=== PATIENT | female | born 1945 | race Caucasian/White ===

== ENCOUNTER 2018-11-10 11:29 | Inpatient (IN) ==
[2018-11-10] MEDS ORDERED: Sod Chloride 0.9% Inj 1,000 ML IV.SIG ONE (11:59)
[2018-11-10 12:29] LABS: Baso % (Auto) 0.4 % (0.0-2.0); Eos % (Auto) 0.4 % (0.0-4.0); Hematocrit 40.7 % (35.0-46.0); Hemoglobin 14.2 gm/dL (11.6-15.3); Lymph % (Auto) 16.2 % (9.0-44.0); Mean Corpuscular HGB Conc 34.8 % (32.0-36.0); Mean Corpuscular Hemoglobin 31.3 pg (27.0-34.0); Mean Corpuscular Volume 90.1 fL (80.0-100.0); Mean Platelet Volume 7.4 fL (7.0-11.0); Mono # (Auto) 0.7 th/mm3 (0.0-0.9); Mono % (Auto) 12.5 % (0.0-8.0); Neut # (Auto) 4.1 th/mm3 (1.8-7.7); Neut % (Auto) 70.5 % (16.0-70.0); Platelet Count 508 th/mm3 (150-450); Red Blood Count 4.52 mil/mm3 (4.00-5.30); Red Cell Distribution Width 13.3 % (11.6-17.2); White Blood Count 5.9 th/mm3 (4.0-11.0)
[2018-11-10 12:48] LABS: Alanine Aminotransferase 50 U/L (10-53); Albumin 3.5 g/dL (3.4-5.0); Anion Gap 12 meq/L (5-15); Aspartate Aminotransferase 20 U/L (15-37); Blood Urea Nitrogen 43 mg/dL (7-18); Calcium 9.5 mg/dL (8.5-10.1); Carbon Dioxide 23.6 meq/L (21.0-32.0); Chloride 93 meq/L (98-107); Glomerular Filtration Rate 15 mL/min (>89); Glucose,Random 134 mg/dL (74-106); Sodium 129 meq/L (136-145)
[2018-11-10 12:51] LABS: Alkaline Phosphatase 250 U/L (45-117); Total Protein 8.7 g/dL (6.4-8.2)
[2018-11-10] MEDS ORDERED: Sodium Chlor 0.9% Inj 500 ML IV.SIG SCH (13:00)
[2018-11-10] MEDS ORDERED: MethylPREDNISolone Sod Succinate Inj 125 MG/2 ML Vial IV.PUSH ONE (14:13)
[2018-11-10] MEDS ORDERED: Acetaminophen 325 MG Tablet PO PRN (14:27)
[2018-11-10] MEDS ORDERED: Bisacodyl 10 MG Supp RECTAL PRN (14:27)
--- NOTE | 2018-11-10 14:27 | ED ---
HPI General Chief complaint: Abdominal Pain Stated complaint: GI/ Complaint Time Seen by Provider: 11/10/18 11:37 Source: patient Mode of arrival: ambulatory Limitations: no limitations History of Present Illness HPI narrative: Patient is a 73 year old female who comes in complaining of diarrhea. She says that she has ulcerative colitis and she has been having an exacerbation for the past 3 weeks. She reports several episodes of diarrhea per day and is now feeling very weak. She denies abdominal pain. She was here 2 weeks ago for the same thing. She was found to have hypokalemia. Her potassium was replaced, she was given fluids and discharged. She says she has been trying to keep up with her fluid loss. She has not been eating much. She denies vomiting. She denies fever or chills. Severity is moderate. Related Data Home Medications Medication Instructions Recorded Confirmed Lactobacillus rhamnosus GG 1 cap PO DAILY 10/28/18 11/10/18 albuterol sulfate [ProAir HFA] 2 puff INHALATION Q4-6H PRN 10/28/18 11/10/18 calcium carbonate-vitamin D3 1 tab PO DAILY 10/28/18 11/10/18 [Calcium with Vitamin D] cholecalciferol (vitamin D3) 5,000 unit PO DAILY 10/28/18 11/10/18 [Vitamin D3] codeine sulfate 30 mg PO TID PRN 10/28/18 11/10/18 diphenoxylate-atropine [Lomotil] 2 tab PO QID PRN 10/28/18 11/10/18 duloxetine 20 mg PO DAILY 10/28/18 11/10/18 fluticasone [Flovent HFA] 1 puff INHALATION BID PRN 10/28/18 11/10/18 hydrochlorothiazide 50 mg PO DAILY 10/28/18 11/10/18 magnesium chloride 64 mg PO DAILY 10/28/18 11/10/18 metoprolol succinate 100 mg PO DAILY 10/28/18 11/10/18 multivitamin [Multiple Vitamins] 1 tab PO DAILY 10/28/18 11/10/18 nortriptyline 10 mg PO HS 10/28/18 11/10/18 omega-3 fatty acids-fish oil [Fish 1 cap PO DAILY 10/28/18 11/10/18 Oil] opium tincture 0.7 ml PO QID PRN 10/28/18 11/10/18 pantoprazole [Protonix] 80 mg PO DAILY 10/28/18 11/10/18 Previous Rx's Medication Instructions Recorded potassium chloride 20 meq PO BID #10 tab 10/28/18 Allergies Allergy/AdvReac Type Severity Reaction Status Date / Time amitriptyline Allergy Weakness Verified 10/28/18 10:57 erythromycin base Allergy Shortness Verified 10/28/18 10:57 of Breath ibuprofen Allergy Abdominal Verified 10/28/18 10:57 Pain infliximab [From Remicade] Allergy Hives Verified 10/28/18 10:57 Penicillins Allergy Shortness Verified 10/28/18 10:57 of Breath Sulfa (Sulfonamide Allergy Shortness Verified 10/28/18 10:57 Antibiotics) of Breath Review of Systems ROS: all other systems reviewed are negative Constitutional Denies chills and Denies fever(s) ENT Denies dizziness Cardiovascular Denies chest pain and Denies dyspnea Respiratory Denies cough and Denies dyspnea Gastrointestinal Denies abdominal pain and Reports diarrhea Musculoskeletal Denies myalgias and Denies arthralgias Integumentary/Breasts Denies sores and Denies wounds Neurologic Denies numbness and Reports weakness PMFSH Medical History Medical History Depression (Acute) GERD (gastroesophageal reflux disease) (Acute) History of hysterectomy (Acute) Hypertension (Acute) Ulcerative colitis (Acute) Surgical History Surgical History H/O neck surgery (Acute) History of cholecystectomy (Acute) Social History Social History Substance History: No History of Abuse Smoking Status: Never smoker How Often Do You Have a Drink Containing Alcohol: Never Recent Travel in [place] within the Last 8 Weeks: No Recent Out of Country Travel within the Last 8 Weeks: No Immunization History Tetanus Immunization: Unsure Exam Narrative Exam Narrative: GENERAL: Awake and alert, in no acute distress. SKIN: Focused skin assessment warm/dry. No wounds or signs of infection. HEAD: Atraumatic. Normocephalic. EYES: Pupils equal and round. No scleral icterus. No injection or drainage. ENT: No nasal bleeding or discharge. Mucous membranes pink and moist. NECK: Trachea midline. No JVD. CARDIOVASCULAR: Regular rate and rhythm. No murmur appreciated. RESPIRATORY: No accessory muscle use. Clear to auscultation. Breath sounds equal bilaterally. GASTROINTESTINAL: Abdomen soft, non-tender, nondistended. MUSCULOSKELETAL: No obvious deformities. No clubbing. No cyanosis. No edema. NEUROLOGICAL: Awake and alert. No obvious cranial nerve deficits. Motor grossly within normal limits. Normal speech. PSYCHIATRIC: Appropriate mood and affect; insight and judgment normal. Course Initial Documented Vital Signs Temperature 98.4 F 11/10/18 11:31 Pulse Rate 97 H 11/10/18 11:31 Respiratory Rate 18 11/10/18 11:31 Blood Pressure 131/77 11/10/18 11:31 Pulse Oximetry 98 11/10/18 11:31 Last Documented Vital Signs Temperature 98.4 F 11/10/18 11:31 Pulse Rate 82 11/10/18 13:46 Respiratory Rate 14 11/10/18 13:46 Blood Pressure 126/68 11/10/18 13:46 Pulse Oximetry 98 11/10/18 13:46 Medical Decision Making MDM Narrative Medical decision making narrative: Patient is a 73-year-old female who comes in complaining of diarrhea. Exam shows no abdominal tenderness. IV established, labs sent. Labs concerning for a Cr of 3, up from 1.9 2 weeks ago, sodium of 129, potassium of 3.0. Patient given IVF. Given potassium. Patient given a dose of solumedrol in an attempt to help with UC flare. Patient to be admitted for further management. Medical Screen Exam Complete: Yes Emergency Medical Condition: Yes Differential Diagnosis Differential Diagnosis: Dehydration versus electrolyte abnormality versus ulcerative colitis Medical Records Medical records reviewed: Yes I reviewed the patient's medical records. Lab Data Lab results reviewed: Yes I reviewed the patient's lab results. Result diagrams: 11/10/18 11:55 11/10/18 11:55 Lab Results 11/10/18 11/10/18 Range/Units 11:55 11:55 WBC 5.9 (4.0-11.0) th/mm3 RBC 4.52 (4.00-5.30) mil/mm3 Hgb 14.2 (11.6-15.3) gm/dL Hct 40.7 (35.0-46.0) % MCV 90.1 (80.0-100.0) fL MCH 31.3 (27.0-34.0) pg MCHC 34.8 (32.0-36.0) % RDW 13.3 (11.6-17.2) % Plt Count 508 H D (150-450) th/mm3 MPV 7.4 (7.0-11.0) fL Neut % (Auto) 70.5 H (16.0-70.0) % Lymph % (Auto) 16.2 (9.0-44.0) % [place] % (Auto) 12.5 H (0.0-8.0) % Eos % (Auto) 0.4 (0.0-4.0) % Baso % (Auto) 0.4 (0.0-2.0) % Neut # (Auto) 4.1 (1.8-7.7) th/mm3 Lymph # (Auto) 1.0 (1.0-4.8) th/mm3 [place] # (Auto) 0.7 (0.0-0.9) th/mm3 Eos # (Auto) 0.0 (0.0-0.4) th/mm3 Baso # (Auto) 0.0 (0.0-0.2) th/mm3 WBC Differential . Differential Comment Auto diff final Sodium 129 L (136-145) meq/L Potassium 3.0 L (3.5-5.1) meq/L Chloride 93 L (98-107) meq/L Carbon Dioxide 23.6 (21.0-32.0) meq/L Anion Gap 12 (5-15) meq/L BUN 43 H (7-18) mg/dL Creatinine 3.01 H (0.50-1.00) mg/dL Estimated GFR 15 L (>89) mL/min Random Glucose 134 H (74-106) mg/dL Calcium 9.5 (8.5-10.1) mg/dL Magnesium 2.0 (1.5-2.5) mg/dL Total Bilirubin 0.5 (0.2-1.0) mg/dL AST 20 (15-37) U/L ALT 50 (10-53) U/L Alkaline Phosphatase 250 H (45-117) U/L Total Protein 8.7 H (6.4-8.2) g/dL Albumin 3.5 (3.4-5.0) g/dL Discharge Plan Discharge Disposition Patient Disposition: ED Admit(ED Internal Use Only) Discharge Condition Condition: Stable Discharge Order Discharge Orders: ED Use Only Admit Order (Routine); Ordered 11/10/18 Ordered By: Rosa Frank Discharge Details Diagnosis: Dehydration, GIO (acute kidney injury), Acute hypokalemia, Acute hyponatremia Physicians Team ED Provider: Rosa Frank Primary Care Provider: Primary Care Dora Latham Attending Provider: Arlette Godwin Other Providers: Geovany Cano V Status ED Status: Left Department Discharge Information Discharge Date/Time: 11/10/18 15:39
[2018-11-10] MEDS ORDERED: Diphenoxylate/Atropine 2.5/0.025 MG Tablet PO PRN (15:27)
[2018-11-10] MEDS ORDERED: OPIUM TINCTURE PO (17:00)
--- NOTE | 2018-11-10 17:04 | P.HP ---
History of Present Illness Primary Care Physician: No Primary Care Physician Chief Complaint: intractable diarrhea, nausea, inability to eat History of Present Illness: 73-year-old female with PMH of depression, GERD, hysterectomy, hypertension, ulcerative colitis( for 20 years) and rheumatoid arthritis who presented to [facility] with complaints of intractable diarrhea, nausea, inability to eat. Patient reports she has a history of ulcerative colitis treated with multiple medications and failed, also follows at [facility] and was told she will need eventually a colectomy. States she has been having "exacerbations" for the past 3 weeks. Reports multiple episodes of diarrhea (~ 20), nonbloody and associated nausea with decreased PO intake and generalized weakness. She reports that she has been on multiple medications that have not been effective. States she uses Pepto-Bismol [id number] and it is not effective as well. Last colonoscopy done 2016 revealed ulcerative colitis, microscopic colitis. Last EGD done in 2011 revealed a esophagitis. Patient denies any current medications taken for ulcerative colitis or rheumatoid arthritis. Patient states that she gets steroid shots as needed for rheumatoid arthritis discomfort. The patient is noted with severe electrolyte imbalance, GIO due to intractable diarrhea, decreased PO intake. She received solumedrol in the ED and also was bolused. Gastroenterology consulted, discussed with Dr Cano, plans for colonoscopy on Tuesday Patient otherwise denies any abdominal pain. No fever or chills. No chest pain or sob she is attign well on room air. Patient denies urinary complaints except she has noticed less urination. Inpatient Certification: I certify that the inpatient services were ordered in accordance with Medicare regulations governing the order. This includes certification that hospital inpatient services are reasonable and necessary and in the case of services not specified as inpatient-only under 42 CFR 419.22(n), that they are appropriately provided as inpatient services in accordance to with the 2-midnight benchmark under 43 CFR 412.3(e) Estimated Total Length of Stay (Days): 5 Plans for Post Hospital Care: Home Review of Systems All other systems reviewed negative except as stated in HPI PMFSH - History History Provided By: Patient - Medical History Medical History: Medical History (Last Reviewed 11/10/18 @ 17:03 by Arlette Godwin MD) Depression GERD (gastroesophageal reflux disease) History of hysterectomy Hypertension Ulcerative colitis - Surgical History Surgical History: Surgical History (Last Reviewed 11/10/18 @ 17:03 by Arlette Godwin MD) H/O neck surgery History of cholecystectomy - Family History Family History: Family History (Last Updated 11/10/18 @ 17:04 by Arlette Godwin MD) Mother Kidney failure - Social History I have reviewed the patient's Social History: Yes - Tobacco History Smoking Status: Never smoker - Alcohol History How Often Do You Have a Drink Containing Alcohol: Never - Substance Use History Substance History: No History of Abuse - Travel History Recent Travel in the [place] Within the Last 8 Weeks: No Recent Travel Out of the Country Within the Last 8 Weeks: No - Immunization History Tetanus Immunization: Unsure Medications and Allergies Active Medications: Active Medications Acetaminophen (Tylenol) 650 mg PO Q4H PRN PRN Reason: Temp > 100.4 Codeine Sulfate (Codeine Sulfate) 30 mg PO TID PRN PRN Reason: Diarrhea Diphenoxylate HCl/Atropine (Lomotil) 2 tab PO QID PRN PRN Reason: Diarrhea Duloxetine HCl (Cymbalta) 20 mg PO DAILY [facility] Fluticasone Propionate (Flovent Hfa 110 Mcg Inh) 1 puff INH BID PRN PRN Reason: Shortness Of Breath Sodium Chloride (Ns Inj) 1,000 mls @ 100 mls/hr IV.CONT .Q10H ANNIE Lactobacillus Acidophilus (Lactinex) 1 tab PO DAILY ANNIE Metoprolol Succinate (Toprol Xl) 100 mg PO DAILY ANNIE Nortriptyline HCl (Pamelor) 10 mg PO HS ANNIE Ondansetron HCl (Zofran Inj) 4 mg IV.PUSH Q6H PRN PRN Reason: NAUSEA OR VOMITING Pantoprazole Sodium (Protonix) 80 mg PO DAILY ANNIE Patient Own Medication - Opium Tincture 0.7 Ml Po Qid Prn For Diarrhea 0 each PO QID PRN PRN Reason: Diarrhea Sodium Chloride (Ns Flush) 2 ml IV.FLUSH BID ANNIE Sodium Chloride (Ns Flush) 2 ml IV.FLUSH PRN PRN PRN Reason: FLUSH AFTER USING IV ACCESS Allergies Allergy/AdvReac Type Severity Reaction Status Date / Time amitriptyline Allergy Weakness Verified 10/28/18 10:57 erythromycin base Allergy Shortness Verified 10/28/18 10:57 of Breath ibuprofen Allergy Abdominal Verified 10/28/18 10:57 Pain infliximab [From Remicade] Allergy Hives Verified 10/28/18 10:57 Penicillins Allergy Shortness Verified 10/28/18 10:57 of Breath Sulfa (Sulfonamide Allergy Shortness Verified 10/28/18 10:57 Antibiotics) of Breath Home Medications Medication Instructions Recorded Confirmed Type Lactobacillus rhamnosus GG 1 cap PO DAILY 10/28/18 11/10/18 History albuterol sulfate [ProAir HFA] 2 puff INHALATION Q4-6H PRN 10/28/18 11/10/18 History calcium carbonate-vitamin D3 1 tab PO DAILY 10/28/18 11/10/18 History [Calcium with Vitamin D] cholecalciferol (vitamin D3) 5,000 unit PO DAILY 10/28/18 11/10/18 History [Vitamin D3] codeine sulfate 30 mg PO TID PRN 10/28/18 11/10/18 History diphenoxylate-atropine [Lomotil] 2 tab PO QID 10/28/18 11/10/18 History duloxetine 20 mg PO DAILY 10/28/18 11/10/18 History fluticasone [Flovent HFA] 1 puff INHALATION BID PRN 10/28/18 11/10/18 History hydrochlorothiazide 50 mg PO DAILY 10/28/18 11/10/18 History magnesium chloride 64 mg PO DAILY 10/28/18 11/10/18 History metoprolol succinate 100 mg PO DAILY 10/28/18 11/10/18 History multivitamin [Multiple Vitamins] 1 tab PO DAILY 10/28/18 11/10/18 History nortriptyline 10 mg PO HS 10/28/18 11/10/18 History omega-3 fatty acids-fish oil [Fish 1 cap PO DAILY 10/28/18 11/10/18 History Oil] opium tincture 0.7 ml PO QID PRN 10/28/18 11/10/18 History pantoprazole [Protonix] 80 mg PO DAILY 10/28/18 11/10/18 History Exam Vital signs: Vital Signs 11/10/18 11:31 11/10/18 13:46 Temperature 98.4 F Pulse Rate 97 H 82 Respiratory Rate 18 14 Blood Pressure 131/77 126/68 Pulse Oximetry 98 98 Intake & Output 11/09/18 11/10/18 11/10/18 18:59 06:59 18:59 Intake Total 1500 / 1500 Balance 1500 / 1500 Weight 77.111 kg Intake: IV 1500 / 1500 NS Inj 1,000 ML @ Wide Open IV. 1000 / 1000 SIG BOLUS ONE Rx#:[id number] NS Inj 500 ML @ 1000 mls/hr IV. 500 / 500 SIG BOLUS ANNIE Rx#:[id number] Narrative: GENERAL: Very pleasant 73 yo female, well nourished, well developed, appears in nad. SKIN: Warm and dry. HEAD: Atraumatic. Normocephalic. EYES: Pupils equal and round. No scleral icterus. No injection or drainage. ENT: No nasal bleeding or discharge. Mucous membranes pink and moist. NECK: Trachea midline. No JVD. CARDIOVASCULAR: Regular rate and rhythm. RESPIRATORY: No accessory muscle use. Clear to auscultation. Breath sounds equal bilaterally. GASTROINTESTINAL: Abdomen soft, non-tender, nondistended. Hepatic and splenic margins not palpable. MUSCULOSKELETAL: Extremities without clubbing, cyanosis, or edema. No obvious deformities. NEUROLOGICAL: Awake and alert. No obvious cranial nerve deficits. Motor grossly within normal limits. Five out of 5 muscle strength in the arms and legs. Normal speech. PSYCHIATRIC: Appropriate mood and affect; insight and judgment normal. Results - Labs CBC & Chem 7: 11/10/18 11:55 11/10/18 11:55 Labs: Laboratory Results - last 24 hr 11/10/18 11/10/18 11:55 11:55 WBC 5.9 RBC 4.52 Hgb 14.2 Hct 40.7 MCV 90.1 MCH 31.3 MCHC 34.8 RDW 13.3 Plt Count 508 H D MPV 7.4 Neut % (Auto) 70.5 H Lymph % (Auto) 16.2 [place] % (Auto) 12.5 H Eos % (Auto) 0.4 Baso % (Auto) 0.4 Neut # (Auto) 4.1 Lymph # (Auto) 1.0 [place] # (Auto) 0.7 Eos # (Auto) 0.0 Baso # (Auto) 0.0 WBC Differential . Differential Comment Auto diff final Sodium 129 L Potassium 3.0 L Chloride 93 L Carbon Dioxide 23.6 Anion Gap 12 BUN 43 H Creatinine 3.01 H Estimated GFR 15 L Random Glucose 134 H Calcium 9.5 Magnesium 2.0 Total Bilirubin 0.5 AST 20 ALT 50 Alkaline Phosphatase 250 H Total Protein 8.7 H Albumin 3.5 Caprini VTE Risk Assessment Caprini VTE Risk Assessment: No/Low Risk (score <= 1) Caprini Risk Assessment Model: Point Value = 1 Point Value = 2 Point Value = 3 Point Value = 5 Age 41-60 Minor surgery BMI > 25 kg/m2 Swollen legs Varicose veins or History of unexplained or recurrent spontaneous Oral contraceptives or hormone replacement Sepsis (< 1 month) Serious lung disease, including pneumonia (< 1 month) Abnormal pulmonary function Acute myocardial infarction Congestive heart failure (< 1 month) History of inflammatory bowel disease Medical patient at bed rest Age 61-74 Arthroscopic surgery Major open surgery (> 45 min) Laparoscopic surgery (> 45 min) Malignancy Confined to bed (> 72 hours) Immobilizing plaster cast Central venous access Age >= 75 History of VTE Family history of VTE Factor V Leiden Prothrombin [id number] Lupus anticoagulant Anticardiolipin antibodies Elevated serum homocysteine Heparin-induced thrombocytopenia Other congenital or acquired thrombophilia Stroke (< 1 month) Elective arthroplasty Hip, pelvis, or leg fracture Acute spinal cord injury (< 1 month) Prophylaxis Regimen: Total Risk Factor Score Risk Level Prophylaxis Regimen 0-1 Low Early ambulation 2 Moderate Order ONE of the following: *Sequential Compression Device (SCD) *Heparin 5000 units SQ BID 3-4 Higher Order ONE of the following medications: *Heparin 5000 units SQ TID *Enoxaparin/Lovenox 40 mg SQ daily (WT < 150 kg, CrCl > 30 mL/min) *Enoxaparin/Lovenox 30 mg SQ daily (WT < 150 kg, CrCl > 10-29 mL/min) *Enoxaparin/Lovenox 30 mg SQ BID (WT < 150 kg, CrCl > 30 mL/min) AND/OR *Sequential Compression Device (SCD) 5 or more Highest Order ONE of the following medications: *Heparin 5000 units SQ TID (Preferred with Epidurals) *Enoxaparin/Lovenox 40 mg SQ daily (WT < 150 kg, CrCl > 30 mL/min) *Enoxaparin/Lovenox 30 mg SQ daily (WT < 150 kg, CrCl > 10-29 mL/min) *Enoxaparin/Lovenox 30 mg SQ BID (WT < 150 kg, CrCl > 30 mL/min) AND *Sequential Compression Device (SCD) Assessment and Plan - Plan Colitis Lymphocytic versus microscopic Patient presents with 2-3-week history of loose stools. Patient denies any noted bleeding denies abdominal pain. History of lymphocytic/microscopic colitis WBC 5.9 hemoglobin 14.2 hematocrit 40.7 probable GIO with BUN 43 creatinine 3.01 on admission total bilirubin 0.5 AST 20 ALT 50 alk phos 250 Hypokalemia Hyponatremia GERD Depression Diet as tolerated IBD panel Plan for colonoscopy on Tuesday Questran 1 packet every 6 hours Restart home meds as tolerated C. difficile stool Stool studies CT abdomen and pelvis without contrast Zofran IV prn IVF 0.9 NS Replace potassium Monitor and replace electrolytes as need DVT ppx scd /teds Recoeds reviewed Code Status: full code Discussed Condition With: patient, at bedside, nurse, ED physician, GI team Dr Cano
[2018-11-10] MEDS: Sod Chloride 0.9% Inj 1,000 ML IV.CONT SCH (18:02)
--- NOTE | 2018-11-10 18:29 | P.CONGI ---
History of Present Illness Consult date: 11/10/18 Consult reason: Diarrhea Chief complaint: Acute kidney injury, hypocalemia, hyponatremia, History of Present Illness: Patient is a 73-year-old female who presented to [facility] with complaints of diarrhea. Patient reports she has history of ulcerative colitis. States she has been having "exacerbation" for the past 3 weeks. Reports multiple episodes of diarrhea and generalized weakness. Patient reports past medical history significant for depression, GERD, hysterectomy, hypertension, ulcerative colitis and rheumatoid arthritis. Surgical history significant for neck surgery, cholecystectomy. Upon consultation, patient reports diagnosis of ulcerative colitis for 20 years. She reports that she has been on multiple medications that have not been effective. States she uses Pepto-Bismol [id number] and it is not effective as well. Last colonoscopy done 2017 revealed ulcerative colitis, microscopic colitis. Last EGD done in 2011 revealed a esophagitis. Patient denies any current medications taken for ulcerative colitis or rheumatoid arthritis. Patient states that she gets steroid shots as needed for rheumatoid arthritis discomfort. Our service has been consulted to evaluate patient for reported diarrhea, history of ulcerative colitis. Review of Systems All other systems reviewed negative except as stated in HPI PMFSH - History History Provided By: Patient - Medical History Medical History: Medical History (Last Reviewed 11/10/18 @ 17:54 by Alexsandra Elias RN) GERD (gastroesophageal reflux disease) History of hysterectomy Hypertension Ulcerative colitis - Surgical History Surgical History: Surgical History (Last Reviewed 11/10/18 @ 17:54 by Alexsandra Elias RN) H/O neck surgery History of cholecystectomy - Family History Family History: Family History (Last Updated 11/10/18 @ 17:04 by Arlette Godwin MD) Mother Kidney failure - Tobacco History Second Hand Smoke Exposure: No Smoking Status: Never smoker - Alcohol History How Often Do You Have a Drink Containing Alcohol: 2 to 4 times a month - Substance Use History Substance History: No History of Abuse - Travel History Recent Travel in the [place] Within the Last 8 Weeks: No Recent Travel Out of the Country Within the Last 8 Weeks: No - Immunization History Tetanus Immunization: <5 Years Hx Influenza Vaccine This Season: Yes Medications and Allergies Active Medications: Active Medications Acetaminophen (Tylenol) 650 mg PO Q4H PRN PRN Reason: Temp > 100.4 Codeine Sulfate (Codeine Sulfate) 30 mg PO TID PRN PRN Reason: Diarrhea Diphenoxylate HCl/Atropine (Lomotil) 2 tab PO QID PRN PRN Reason: Diarrhea Duloxetine HCl (Cymbalta) 20 mg PO DAILY [facility] Fluticasone Propionate (Flovent Hfa 110 Mcg Inh) 1 puff INH BID PRN PRN Reason: Shortness Of Breath Sodium Chloride (Ns Inj) 1,000 mls @ 100 mls/hr IV.CONT .Q10H [facility] Last Admin: 11/10/18 18:02 Dose: 100 mls/hr Lactobacillus Acidophilus (Lactinex) 1 tab PO DAILY [facility] Metoprolol Succinate (Toprol Xl) 100 mg PO DAILY [facility] Nortriptyline HCl (Pamelor) 10 mg PO HS [facility] Ondansetron HCl (Zofran Inj) 4 mg IV.PUSH Q6H PRN PRN Reason: NAUSEA OR VOMITING Pantoprazole Sodium (Protonix) 80 mg PO DAILY [facility] Patient Own Medication - Opium Tincture 0.7 Ml Po Qid Prn For Diarrhea 0 each PO QID PRN PRN Reason: Diarrhea Sodium Chloride (Ns Flush) 2 ml IV.FLUSH BID [facility] Sodium Chloride (Ns Flush) 2 ml IV.FLUSH PRN PRN PRN Reason: FLUSH AFTER USING IV ACCESS Allergies Allergy/AdvReac Type Severity Reaction Status Date / Time amitriptyline Allergy Weakness Verified 10/28/18 10:57 erythromycin base Allergy Shortness Verified 10/28/18 10:57 of Breath ibuprofen Allergy Abdominal Verified 10/28/18 10:57 Pain infliximab [From Remicade] Allergy Hives Verified 10/28/18 10:57 Penicillins Allergy Shortness Verified 10/28/18 10:57 of Breath Sulfa (Sulfonamide Allergy Shortness Verified 10/28/18 10:57 Antibiotics) of Breath Home Medications Medication Instructions Recorded Confirmed Type Lactobacillus rhamnosus GG 1 cap PO DAILY 10/28/18 11/10/18 History albuterol sulfate [ProAir HFA] 2 puff INHALATION Q4-6H PRN 10/28/18 11/10/18 History calcium carbonate-vitamin D3 1 tab PO DAILY 10/28/18 11/10/18 History [Calcium with Vitamin D] cholecalciferol (vitamin D3) 5,000 unit PO DAILY 10/28/18 11/10/18 History [Vitamin D3] codeine sulfate 30 mg PO TID PRN 10/28/18 11/10/18 History diphenoxylate-atropine [Lomotil] 2 tab PO QID 10/28/18 11/10/18 History duloxetine 20 mg PO DAILY 10/28/18 11/10/18 History fluticasone [Flovent HFA] 1 puff INHALATION BID PRN 10/28/18 11/10/18 History hydrochlorothiazide 50 mg PO DAILY 10/28/18 11/10/18 History magnesium chloride 64 mg PO DAILY 10/28/18 11/10/18 History metoprolol succinate 100 mg PO DAILY 10/28/18 11/10/18 History multivitamin [Multiple Vitamins] 1 tab PO DAILY 10/28/18 11/10/18 History nortriptyline 10 mg PO HS 10/28/18 11/10/18 History omega-3 fatty acids-fish oil [Fish 1 cap PO DAILY 10/28/18 11/10/18 History Oil] opium tincture 0.7 ml PO QID PRN 10/28/18 11/10/18 History pantoprazole [Protonix] 80 mg PO DAILY 10/28/18 11/10/18 History Exam Vital signs: Vital Signs 11/10/18 11:31 11/10/18 13:46 Temperature 98.4 F Pulse Rate 97 H 82 Respiratory Rate 18 14 Blood Pressure 131/77 126/68 Pulse Oximetry 98 98 Intake & Output 11/09/18 11/10/18 11/10/18 18:59 06:59 18:59 Intake Total 1500 / 1500 Balance 1500 / 1500 Weight 77.1 kg Intake: IV 1500 / 1500 NS Inj 1,000 ML @ Wide Open IV. 1000 / 1000 SIG BOLUS ONE Rx#:[id number] NS Inj 500 ML @ 1000 mls/hr IV. 500 / 500 SIG BOLUS ANNIE Rx#:[id number] Other: Date of Last Bowel Movement 11/10/18 # Bowel Movements 3 Weight On Admission 77.1 kg - Constitutional no acute distress - Routine HEENT Exam Head: Present: normocephalic - Routine Neck Exam Present: supple - Routine Respiratory Exam Present: CTA bilaterally. Absent: accessory muscle use - Routine Abdominal Exam Present: soft, normoactive bowel sounds. Absent: tenderness, distended, guarding, firm - Routine Extremities Exam Absent: edema - Routine Skin Exam Present: dry, warm - Routine Neurological Exam Present: alert Results - Labs CBC & Chem 7: 11/10/18 11:55 11/10/18 11:55 Labs: Laboratory Results - last 24 hr 11/10/18 11/10/18 11:55 11:55 WBC 5.9 RBC 4.52 Hgb 14.2 Hct 40.7 MCV 90.1 MCH 31.3 MCHC 34.8 RDW 13.3 Plt Count 508 H D MPV 7.4 Neut % (Auto) 70.5 H Lymph % (Auto) 16.2 [place] % (Auto) 12.5 H Eos % (Auto) 0.4 Baso % (Auto) 0.4 Neut # (Auto) 4.1 Lymph # (Auto) 1.0 [place] # (Auto) 0.7 Eos # (Auto) 0.0 Baso # (Auto) 0.0 WBC Differential . Differential Comment Auto diff final Sodium 129 L Potassium 3.0 L Chloride 93 L Carbon Dioxide 23.6 Anion Gap 12 BUN 43 H Creatinine 3.01 H Estimated GFR 15 L Random Glucose 134 H Calcium 9.5 Magnesium 2.0 Total Bilirubin 0.5 AST 20 ALT 50 Alkaline Phosphatase 250 H Total Protein 8.7 H Albumin 3.5 Assessment and Plan (1) Colitis Status: Acute Code(s): K52.9 - Noninfective gastroenteritis and colitis, unspecified - Plan Patient is a 73-year-old female who presented to [facility] with complaints of diarrhea. Patient reports she has history of ulcerative colitis. States she has been having "exacerbation" for the past 3 weeks. Reports multiple episodes of diarrhea and generalized weakness. Patient reports past medical history significant for depression, GERD, hysterectomy, hypertension, ulcerative colitis and rheumatoid arthritis. Surgical history significant for neck surgery, cholecystectomy. Upon consultation, patient reports diagnosis of ulcerative colitis for 20 years. She reports that she has been on multiple medications that have not been effective. States she uses Pepto-Bismol [id number] and it is not effective as well. Last colonoscopy done 2017 revealed ulcerative colitis, microscopic colitis. Last EGD done in 2011 revealed a esophagitis. Patient denies any current medications taken for ulcerative colitis or rheumatoid arthritis. Patient states that she gets steroid shots as needed for rheumatoid arthritis discomfort. Our service has been consulted to evaluate patient for reported diarrhea, history of ulcerative colitis. Colitis Lymphocytic versus microscopic Patient presents with 2-3-week history of loose stools. Patient denies any noted bleeding denies abdominal pain. History of lymphocytic/microscopic colitis WBC 5.9 hemoglobin 14.2 hematocrit 40.7 BUN 43 creatinine 3.01 total bilirubin 0.5 AST 20 ALT 50 alk phos 250 Plan Diet as tolerated IBD panel Plan for colonoscopy on Tuesday Questran 1 packet every 6 hours C. difficile stool Stool studies CT abdomen and pelvis without contrast Supportive care Further recommendations to follow This patient has been seen by myself and Dr. Cano and this note is written on his behalf - Attending Attestation Dr. Cano
--- NOTE | 2018-11-10 19:15 | CT ---
EXAM DATE: 11/10/2018 7:09 PM EST AGE/SEX: 73 years / Female INDICATIONS: Low abdominal pain and diarrhea. CLINICAL DATA: This is the patient's initial encounter. Patient reports that signs and symptoms have been present for 2 days and indicates a pain score of 3/10. MEDICAL/SURGICAL HISTORY: Gastroesophageal reflux disease. Hypertension. Ulcerative colitis. Hysterectomy. Cholecystectomy. Neck surgery RADIATION DOSE: 7.44 CTDI (mGy) COMPARISON: No prior exams available for comparison. TECHNIQUE: Multiple contiguous axial images were obtained through the abdomen. Images were obtained using multiple row detector helical technique. Using automated exposure control and adjustment of the mA and/or kV according to patient size, radiation dose was kept as low as reasonably achievable to o btain optimal diagnostic quality images. DICOM format image data is available electronically for rev iew and comparison. FINDINGS: Abdomen CT: The liver, spleen, pancreas, kidneys, adrenals are unremarkable. There is no evidence for any appreci able pathological adenopathy, free fluid, or bowel obstruction. Multiple pills are present within th e small bowel loops. Pelvic CT: There is no evidence for mass, abscess formation, or any significant adenopathy within the pelvis. CONCLUSION: Essentially unremarkable study. Electronically signed by: Stacy Soliz MD Board Certified Radiologist 11/10/2018 7:14 PM EST
[2018-11-10] MEDS ORDERED: Senna/Docusate Sodium 8.6/50 MG Tablet PO SCH (21:00)
[2018-11-10] MEDS: Nortriptyline 10 MG Capsule PO SCH (21:54)
[2018-11-11] MEDS: Sod Chloride 0.9% Inj 1,000 ML IV.CONT SCH ×3 (03:23→22:47)
[2018-11-11] MEDS ORDERED: Acetaminophen 325 MG Tablet PO PRN (06:03)
[2018-11-11 07:18] LABS: Baso % (Auto) 0.2 % (0.0-2.0); Hematocrit 35.5 % (35.0-46.0); Hemoglobin 12.2 gm/dL (11.6-15.3); Lymph # (Auto) 0.6 th/mm3 (1.0-4.8); Lymph % (Auto) 11.5 % (9.0-44.0); Mean Corpuscular HGB Conc 34.4 % (32.0-36.0); Mean Corpuscular Volume 90.2 fL (80.0-100.0); Mean Platelet Volume 7.5 fL (7.0-11.0); Mono # (Auto) 0.2 th/mm3 (0.0-0.9); Mono % (Auto) 3.5 % (0.0-8.0); Neut # (Auto) 4.4 th/mm3 (1.8-7.7); Neut % (Auto) 84.8 % (16.0-70.0); Platelet Count 416 th/mm3 (150-450); Red Blood Count 3.94 mil/mm3 (4.00-5.30); Red Cell Distribution Width 13.1 % (11.6-17.2); White Blood Count 5.2 th/mm3 (4.0-11.0)
[2018-11-11 07:39] LABS: Alanine Aminotransferase 36 U/L (10-53); Albumin 2.9 g/dL (3.4-5.0); Alkaline Phosphatase 182 U/L (45-117); Anion Gap 11 meq/L (5-15); Aspartate Aminotransferase 12 U/L (15-37); Blood Urea Nitrogen 37 mg/dL (7-18); Calcium 8.3 mg/dL (8.5-10.1); Carbon Dioxide 22.5 meq/L (21.0-32.0); Chloride 103 meq/L (98-107); Glomerular Filtration Rate 26 mL/min (>89); Glucose,Random 137 mg/dL (74-106); Potassium 3.1 meq/L (3.5-5.1); Sodium 136 meq/L (136-145)
[2018-11-11] MEDS ORDERED: Lactobacillus Acidophilus/L. Spores Tablet PO SCH (09:00)
--- NOTE | 2018-11-11 15:29 | P.PN ---
Subjective Interval history: No more nausea. Has more abd pain today after she ate. Still with diarrhea. Lytes improved , K still low replaced. No fever or chills. Physical Exam Vital signs: Vital Signs 11/10/18 20:40 11/11/18 00:05 11/11/18 08:00 Temperature 98.4 F 97.9 F 97.8 F Pulse Rate 105 H 104 H 102 H Respiratory Rate 19 19 16 Blood Pressure 119/58 L 122/65 128/66 Pulse Oximetry 92 L 97 96 11/11/18 11:57 Temperature 97.8 F Pulse Rate 76 Respiratory Rate 18 Blood Pressure 125/65 Pulse Oximetry 97 Intake & Output 11/10/18 11/11/18 11/11/18 18:59 06:59 18:59 Intake Total 1500 / 1500 1520 / 1520 1000 / 1000 Output Total 600 / 600 Balance 1500 / 1500 920 / 920 1000 / 1000 Weight 77.1 kg 77.1 kg Intake: IV 1500 / 1500 1000 / 1000 1000 / 1000 NS Inj 1,000 ML @ 100 mls/hr IV 1000 / 1000 1000 / 1000 .CONT .Q10H ANNIE Rx#:[id number] NS Inj 1,000 ML @ Wide Open IV. 1000 / 1000 SIG BOLUS ONE Rx#:[id number] NS Inj 500 ML @ 1000 mls/hr IV. 500 / 500 SIG BOLUS ANNIE Rx#:[id number] Oral 520 / 520 Output: Urine 600 / 600 Other: Date of Last Bowel Movement 11/10/18 11/11/18 11/11/18 # Bowel Movements 3 3 Weight On Admission 77.1 kg Narrative: GENERAL: Very pleasant 73 yo female, well nourished, well developed, appears in nad. CARDIOVASCULAR: Regular rate and rhythm. RESPIRATORY: No accessory muscle use. Clear to auscultation. Breath sounds equal bilaterally. GASTROINTESTINAL: Abdomen soft, non-tender, nondistended. Hepatic and splenic margins not palpable. MUSCULOSKELETAL: Extremities without clubbing, cyanosis, or edema. No obvious deformities. NEUROLOGICAL: Awake and alert. No obvious cranial nerve deficits. Motor grossly within normal limits. Five out of 5 muscle strength in the arms and legs. Normal speech. PSYCHIATRIC: Appropriate mood and affect; insight and judgment normal. Results - Labs CBC & Chem 7: 11/11/18 05:26 11/11/18 05:26 Laboratory Results - last 24 hr 11/11/18 11/11/18 05:26 05:26 WBC 5.2 RBC 3.94 L Hgb 12.2 D Hct 35.5 MCV 90.2 MCH 31.0 MCHC 34.4 RDW 13.1 Plt Count 416 MPV 7.5 Neut % (Auto) 84.8 H Lymph % (Auto) 11.5 [place] % (Auto) 3.5 Eos % (Auto) 0.0 Baso % (Auto) 0.2 Neut # (Auto) 4.4 Lymph # (Auto) 0.6 L [place] # (Auto) 0.2 Eos # (Auto) 0.0 Baso # (Auto) 0.0 WBC Differential . Differential Comment Auto diff final Sodium 136 Potassium 3.1 L Chloride 103 D Carbon Dioxide 22.5 Anion Gap 11 BUN 37 H Creatinine 1.93 H Estimated GFR 26 L Random Glucose 137 H Calcium 8.3 L D Total Bilirubin 0.4 AST 12 L ALT 36 Alkaline Phosphatase 182 H C-Reactive Protein 1.30 H Total Protein 7.0 D Albumin 2.9 L D - Imaging Impressions Abdomen/Pelvis CT 11/10/18 18:28 CONCLUSION: Essentially unremarkable study. Assessment and Plan - Plan Colitis Lymphocytic versus microscopic Patient presents with 2-3-week history of loose stools. Patient denies any noted bleeding denies abdominal pain. History of lymphocytic/microscopic colitis WBC 5.9 hemoglobin 14.2 hematocrit 40.7 probable GIO with BUN 43 creatinine 3.01 on admission total bilirubin 0.5 AST 20 ALT 50 alk phos 250 Hypokalemia Hyponatremia GERD Depression Diet as tolerated IBD panel Plan for colonoscopy on Tuesday Questran 1 packet every 6 hours Restart home meds as tolerated C. difficile stool Stool studies CT abdomen and pelvis without contrast Zofran IV prn IVF 0.9 NS Replace potassium as still Low . Monitor and replace electrolytes as need DVT ppx scd /teds Records reviewed Discussed with the patient, at bedside, nurse, GI service
--- NOTE | 2018-11-11 17:14 | MR ---
EXAM DATE: 11/11/2018 5:09 PM EST AGE/SEX: 73 years / Female INDICATIONS: Abdominal pain. CLINICAL DATA: This is the patient's initial encounter. Patient reports that signs and symptoms have been present for 2 days and indicates a pain score of 3/10. MEDICAL/SURGICAL HISTORY: Hypertension. Gastroesophageal reflux disease. Ulcerative colitis. Cholecystectomy. Fusion, cervical. COMPARISON: No prior exams available for comparison. TECHNIQUE: Multiplanar, multisequence images of the abdomen were obtained without contrast including dedicated cholangiographic images. FINDINGS: The common bile duct measures almost 8 mm without any filling defects. No significant intrahepatic du ctal dilatation is seen in the pancreatic duct appears intact. There is evidence for prior cholecystectomy. CONCLUSION: 1. Prominence of the common bile duct most likely from post cholecystectomy reservoir changes, ot herwise unremarkable. Electronically signed by: Stacy Soliz MD Board Certified Radiologist 11/11/2018 5:12 PM EST
[2018-11-11] MEDS: Mesalamine 800 MG Tablet DR PO SCH (17:21)
--- NOTE | 2018-11-11 20:55 | P.PNGI ---
Subjective Interval history: Patient sitting up in bed Spouse at bedside Patient reports stools every 2-3 hours this a.m. States loose stools with no noted bleeding <Vilma Chaves - Last Filed: 11/11/18 20:51> Physical Exam Vital signs: Vital Signs 11/11/18 00:05 11/11/18 08:00 11/11/18 11:57 Temperature 97.9 F 97.8 F 97.8 F Pulse Rate 104 H 102 H 76 Respiratory Rate 19 16 18 Blood Pressure 122/65 128/66 125/65 Pulse Oximetry 97 96 97 11/11/18 16:00 11/11/18 16:47 11/11/18 19:26 Temperature 97.8 F 98.0 F Pulse Rate 71 67 Respiratory Rate 17 17 Blood Pressure 126/70 112/60 Pulse Oximetry 96 98 Intake & Output 11/11/18 11/11/18 11/12/18 06:59 18:59 06:59 Intake Total 1520 / 1520 1960 / 1960 Output Total 600 / 600 500 / 500 Balance 920 / 920 1460 / 1460 Weight 77.1 kg Intake: IV 1000 / 1000 1000 / 1000 NS Inj 1,000 ML @ 100 mls/hr IV 1000 / 1000 1000 / 1000 .CONT .Q10H ANNIE Rx#:[id number] Oral 520 / 520 960 / 960 Output: Urine 600 / 600 500 / 500 Other: Date of Last Bowel Movement 11/11/18 11/11/18 # Bowel Movements 3 - Constitutional no acute distress - Routine HEENT Exam Head: Present: normocephalic - Routine Respiratory Exam Present: CTA bilaterally - Routine Cardiovascular Exam Present: RRR, S1, S2 - Routine Abdominal Exam Present: soft, normoactive bowel sounds. Absent: tenderness, distended, firm - Routine Skin Exam Present: dry, warm - Routine Neurological Exam Present: alert, oriented X3 <Vilma Chaves - Last Filed: 11/11/18 20:51> Vital signs: Vital Signs 11/11/18 11:57 11/11/18 16:00 11/11/18 16:47 Temperature 97.8 F 97.8 F Pulse Rate 76 71 Respiratory Rate 18 17 Blood Pressure 125/65 126/70 Pulse Oximetry 97 96 11/11/18 19:26 11/11/18 23:28 11/12/18 08:00 Temperature 98.0 F 98.0 F 98.1 F Pulse Rate 67 84 70 Respiratory Rate 17 16 18 Blood Pressure 112/60 112/57 L 134/63 Pulse Oximetry 98 97 99 Intake & Output 11/11/18 11/12/18 11/12/18 18:59 06:59 18:59 Intake Total 1960 / 1960 1600 / 1600 1000 / 1000 Output Total 500 / 500 1500 / 1500 Balance 1460 / 1460 100 / 100 1000 / 1000 Weight 84.3 kg Intake: IV 1000 / 1000 1000 / 1000 1000 / 1000 NS Inj 1,000 ML @ 100 mls/hr IV 1000 / 1000 1000 / 1000 1000 / 1000 .CONT .Q10H ANNIE Rx#:[id number] Oral 960 / 960 600 / 600 Output: Urine 500 / 500 1500 / 1500 Other: Date of Last Bowel Movement 11/11/18 11/12/18 # Bowel Movements 3 <Delgado Chappell - Last Filed: 11/12/18 08:37> Results - Labs CBC & Chem 7: 11/11/18 05:26 11/11/18 05:26 Laboratory Results - last 24 hr 11/11/18 11/11/18 05:26 05:26 WBC 5.2 RBC 3.94 L Hgb 12.2 D Hct 35.5 MCV 90.2 MCH 31.0 MCHC 34.4 RDW 13.1 Plt Count 416 MPV 7.5 Neut % (Auto) 84.8 H Lymph % (Auto) 11.5 [place] % (Auto) 3.5 Eos % (Auto) 0.0 Baso % (Auto) 0.2 Neut # (Auto) 4.4 Lymph # (Auto) 0.6 L [place] # (Auto) 0.2 Eos # (Auto) 0.0 Baso # (Auto) 0.0 WBC Differential . Differential Comment Auto diff final Sodium 136 Potassium 3.1 L Chloride 103 D Carbon Dioxide 22.5 Anion Gap 11 BUN 37 H Creatinine 1.93 H Estimated GFR 26 L Random Glucose 137 H Calcium 8.3 L D Total Bilirubin 0.4 AST 12 L ALT 36 Alkaline Phosphatase 182 H C-Reactive Protein 1.30 H Total Protein 7.0 D Albumin 2.9 L D - Imaging Impressions Cholangiopancreatography MRI 11/11/18 00:00 CONCLUSION: 1. Prominence of the common bile duct most likely from post cholecystectomy reservoir changes, otherwise unremarkable. <Vilma Chaves - Last Filed: 11/11/18 20:51> - Labs CBC & Chem 7: 11/11/18 05:26 11/12/18 05:39 Laboratory Results - last 24 hr 11/11/18 11/12/18 11/12/18 05:19 05:39 05:39 Sodium 143 Potassium 3.6 Chloride 112 H D Carbon Dioxide 24.3 Anion Gap 7 BUN 23 H Creatinine 1.45 H Estimated GFR 36 L Random Glucose 88 Calcium 7.9 L Magnesium 1.8 Cancelled Stl C.difficile DNA Amp Negative St C. diff Tox Epid 027 Negative - Imaging Impressions Cholangiopancreatography MRI 11/11/18 00:00 CONCLUSION: 1. Prominence of the common bile duct most likely from post cholecystectomy reservoir changes, otherwise unremarkable. <Delgado Chappell - Last Filed: 11/12/18 08:37> Assessment and Plan (1) Colitis Status: Acute Code(s): K52.9 - Noninfective gastroenteritis and colitis, unspecified - Plan Patient is a 73-year-old female who presented to [facility] with complaints of diarrhea. Patient reports she has history of ulcerative colitis. States she has been having "exacerbation" for the past 3 weeks. Reports multiple episodes of diarrhea and generalized weakness. Patient reports past medical history significant for depression, GERD, hysterectomy, hypertension, ulcerative colitis and rheumatoid arthritis. Surgical history significant for neck surgery, cholecystectomy. Upon consultation, patient reports diagnosis of ulcerative colitis for 20 years. She reports that she has been on multiple medications that have not been effective. States she uses Pepto-Bismol [id number] and it is not effective as well. Last colonoscopy done 2017 revealed ulcerative colitis, microscopic colitis. Last EGD done in 2011 revealed a esophagitis. Patient denies any current medications taken for ulcerative colitis or rheumatoid arthritis. Patient states that she gets steroid shots as needed for rheumatoid arthritis discomfort. Our service has been consulted to evaluate patient for reported diarrhea, history of ulcerative colitis. Colitis Lymphocytic versus microscopic Patient presents with 2-3-week history of loose stools. Patient denies any noted bleeding denies abdominal pain. History of lymphocytic/microscopic colitis WBC 5.9 hemoglobin 14.2 hematocrit 40.7 BUN 43 creatinine 3.01 total bilirubin 0.5 AST 20 ALT 50 alk phos 250 11/11/2018 Patient reports loose stool every 2-3 hours this a.m. Denies any abdominal pain WBC 5.2 hemoglobin 12.2 hematocrit 35.5 platelet count 416 Total bilirubin 0.4 AST 12 ALT 36 alk phos 182 C-reactive protein 1.30 11/11/2018 MRCP- Prominence of the common bile duct most likely from post cholecystectomy reservoir changes, otherwise unremarkable. Plan -Cardiac diet -Questran 1 packet every 6 hours -C. difficile stool -Stool studies pending -Mesalamine 800 mg 3 times daily -P- Anca pending-rule out PSC -Supportive care -Further recommendations to follow This patient has been seen by myself and Dr. Chappell and this note is written on his behalf - Attending Attestation Dr. Chappell <Vilma Chaves - Last Filed: 11/11/18 20:51> (1) Colitis Status: Acute Code(s): K52.9 - Noninfective gastroenteritis and colitis, unspecified - Attending Attestation The patient was seen and examined. Agree with above note. <Delgado Chappell - Last Filed: 11/12/18 08:37>
[2018-11-11] MEDS: Nortriptyline 10 MG Capsule PO SCH (21:04)
[2018-11-12 07:08] LABS: Calcium 7.9 mg/dL (8.5-10.1); Carbon Dioxide 24.3 meq/L (21.0-32.0); Magnesium 1.8 mg/dL (1.5-2.5); Potassium 3.6 meq/L (3.5-5.1)
[2018-11-12] MEDS: Sod Chloride 0.9% Inj 1,000 ML IV.CONT SCH ×2 (08:19→17:39)
[2018-11-12] MEDS: Mesalamine 800 MG Tablet DR PO SCH ×3 (08:20→17:39)
--- NOTE | 2018-11-12 10:35 | P.PN ---
Subjective Interval history: The patient is in the chair. Appears in nad. No n/v. Able to eat better today. Had 3 episodes of nonbloody diarrhea in the morning. Less abd pain. No fever or chills. Physical Exam Vital signs: Vital Signs 11/11/18 11:57 11/11/18 16:00 11/11/18 16:47 Temperature 97.8 F 97.8 F Pulse Rate 76 71 Respiratory Rate 18 17 Blood Pressure 125/65 126/70 Pulse Oximetry 97 96 11/11/18 19:26 11/11/18 23:28 11/12/18 08:00 Temperature 98.0 F 98.0 F 98.1 F Pulse Rate 67 84 70 Respiratory Rate 17 16 18 Blood Pressure 112/60 112/57 L 134/63 Pulse Oximetry 98 97 99 Intake & Output 11/11/18 11/12/18 11/12/18 18:59 06:59 18:59 Intake Total 1960 / 1960 1600 / 1600 1000 / 1000 Output Total 500 / 500 1500 / 1500 Balance 1460 / 1460 100 / 100 1000 / 1000 Weight 84.3 kg Intake: IV 1000 / 1000 1000 / 1000 1000 / 1000 NS Inj 1,000 ML @ 100 mls/hr IV 1000 / 1000 1000 / 1000 1000 / 1000 .CONT .Q10H ANNIE Rx#:[id number] Oral 960 / 960 600 / 600 Output: Urine 500 / 500 1500 / 1500 Other: Date of Last Bowel Movement 11/11/18 11/12/18 11/12/18 # Bowel Movements 3 Narrative: GENERAL: Very pleasant 73 yo female, well nourished, well developed, appears in nad. CARDIOVASCULAR: Regular rate and rhythm. RESPIRATORY: No accessory muscle use. Clear to auscultation. Breath sounds equal bilaterally. GASTROINTESTINAL: Abdomen soft, non-tender, nondistended. Hepatic and splenic margins not palpable. MUSCULOSKELETAL: Extremities without clubbing, cyanosis, or edema. No obvious deformities. NEUROLOGICAL: Awake and alert. No obvious cranial nerve deficits. Motor grossly within normal limits. Five out of 5 muscle strength in the arms and legs. Normal speech. PSYCHIATRIC: Appropriate mood and affect; insight and judgment normal. Results - Labs CBC & Chem 7: 11/11/18 05:26 11/12/18 05:39 Laboratory Results - last 24 hr 11/11/18 11/12/18 11/12/18 05:19 05:39 05:39 Sodium 143 Potassium 3.6 Chloride 112 H D Carbon Dioxide 24.3 Anion Gap 7 BUN 23 H Creatinine 1.45 H Estimated GFR 36 L Random Glucose 88 Calcium 7.9 L Magnesium 1.8 Cancelled Stl C.difficile DNA Amp Negative St C. diff Tox Epid 027 Negative - Imaging Impressions Cholangiopancreatography MRI 11/11/18 00:00 CONCLUSION: 1. Prominence of the common bile duct most likely from post cholecystectomy reservoir changes, otherwise unremarkable. Assessment and Plan - Plan Colitis Lymphocytic versus microscopic Patient presents with 2-3-week history of loose stools. Patient denies any noted bleeding denies abdominal pain. History of lymphocytic/microscopic colitis WBC 5.9 hemoglobin 14.2 hematocrit 40.7 probable GIO on CKDwith BUN 43 creatinine 3.01 on admission ,imprpving to baseline total bilirubin 0.5 AST 20 ALT 50 alk phos 250 Hypokalemia, resolved Hyponatremia , resolved GERD Depression Diet as tolerated IBD panel C diff is negative P- Anca pending-rule out PSC Stool studies pending Hold colonoscopy untul diarrhea resolved, can be done as OP per GI Continue Questran 1 packet every 6 hours Started on Mesalamine 800 mg 3 times daily Started on Methylprednisone 30 mg IV every 12 hours Restart home meds as tolerated C. difficile stool Stool studies CT abdomen and pelvis without contrast reviewed Zofran IV prn IVF 0.9 NS Continue to monitor and replace potassium as need Monitor and replace electrolytes as need DVT ppx scd /teds Records reviewed Discussed with the patient, at bedside, nurse, GI service DC plan: POss DC tomorrow if improved and cleared by GI
[2018-11-12] MEDS: MethylPREDNISolone Sod Succinate Inj 40 MG/ML Vial IV.PUSH SCH ×2 (11:08→21:27)
--- NOTE | 2018-11-12 17:21 | P.PNGI ---
Subjective Interval history: Patient ambulating in room states about to shower Reports 3 episodes of loose stool this a.m. brown without noted bleeding Denies abdominal pain nausea or vomiting Post MRCP <Vilma Chaves - Last Filed: 11/12/18 17:22> Physical Exam Vital signs: Vital Signs 11/11/18 19:26 11/11/18 23:28 11/12/18 08:00 Temperature 98.0 F 98.0 F 98.1 F Pulse Rate 67 84 70 Respiratory Rate 17 16 18 Blood Pressure 112/60 112/57 L 134/63 Pulse Oximetry 98 97 99 11/12/18 12:00 11/12/18 16:00 Temperature 97.9 F 97.9 F Pulse Rate 70 77 Respiratory Rate 18 18 Blood Pressure 132/73 123/62 Pulse Oximetry 97 98 Intake & Output 11/11/18 11/12/18 11/12/18 18:59 06:59 18:59 Intake Total 1960 / 1960 1600 / 1600 1000 / 1000 Output Total 500 / 500 1500 / 1500 Balance 1460 / 1460 100 / 100 1000 / 1000 Weight 84.3 kg Intake: IV 1000 / 1000 1000 / 1000 1000 / 1000 NS Inj 1,000 ML @ 100 mls/hr IV 1000 / 1000 1000 / 1000 1000 / 1000 .CONT .Q10H ANNIE Rx#:[id number] Oral 960 / 960 600 / 600 Output: Urine 500 / 500 1500 / 1500 Other: Date of Last Bowel Movement 11/11/18 11/12/18 11/12/18 # Bowel Movements 3 - Constitutional no acute distress - Routine Respiratory Exam Present: CTA bilaterally - Routine Cardiovascular Exam Present: RRR - Routine Abdominal Exam Present: soft, normoactive bowel sounds. Absent: tenderness, distended, rebound , guarding, firm - Routine Extremities Exam Absent: edema - Routine Skin Exam Present: dry, warm - Routine Neurological Exam Present: alert <Vilma Chaves - Last Filed: 11/12/18 17:22> Vital signs: Vital Signs 11/12/18 12:00 11/12/18 16:00 11/12/18 19:57 Temperature 97.9 F 97.9 F 97.8 F Pulse Rate 70 77 68 Respiratory Rate 18 18 17 Blood Pressure 132/73 123/62 118/75 Pulse Oximetry 97 98 98 11/12/18 23:51 11/13/18 07:23 Temperature 97.9 F 97.8 F Pulse Rate 75 73 Respiratory Rate 17 16 Blood Pressure 131/62 146/72 H Pulse Oximetry 95 95 Intake & Output 11/12/18 11/13/18 11/13/18 18:59 06:59 18:59 Intake Total 2950 / 2950 1840 / 1840 Output Total 800 / 800 1125 / 1125 Balance 2150 / 2150 715 / 715 Weight 86.3 kg Intake: IV 1999 1000 / 1000 NS Inj 1,000 ML @ 100 mls/hr IV 1999 1000 / 1000 .CONT .Q10H ANNIE Rx#:[id number] Oral 950 / 950 840 / 840 Output: Urine 800 / 800 1125 / 1125 Other: Date of Last Bowel Movement 11/12/18 11/12/18 11/12/18 # Bowel Movements 0 <Delgado Chappell - Last Filed: 11/13/18 09:30> Results - Labs CBC & Chem 7: 11/11/18 05:26 11/12/18 05:39 Laboratory Results - last 24 hr 11/11/18 11/12/18 11/12/18 05:19 05:39 05:39 Sodium 143 Potassium 3.6 Chloride 112 H D Carbon Dioxide 24.3 Anion Gap 7 BUN 23 H Creatinine 1.45 H Estimated GFR 36 L Random Glucose 88 Calcium 7.9 L Magnesium 1.8 Cancelled Stl C.difficile DNA Amp Negative St C. diff Tox Epid 027 Negative <Vilma Chaves - Last Filed: 11/12/18 17:22> - Labs CBC & Chem 7: 11/11/18 05:26 11/13/18 05:39 Laboratory Results - last 24 hr 11/13/18 05:39 Sodium 145 Potassium 4.1 Chloride 114 H Carbon Dioxide 23.8 Anion Gap 7 BUN 18 Creatinine 1.22 H Estimated GFR 43 L Random Glucose 118 H Calcium 7.6 L <Delgado Chappell - Last Filed: 11/13/18 09:30> Assessment and Plan (1) Colitis Status: Acute Code(s): K52.9 - Noninfective gastroenteritis and colitis, unspecified - Plan Patient is a 73-year-old female who presented to [facility] with complaints of diarrhea. Patient reports she has history of ulcerative colitis. States she has been having "exacerbation" for the past 3 weeks. Reports multiple episodes of diarrhea and generalized weakness. Patient reports past medical history significant for depression, GERD, hysterectomy, hypertension, ulcerative colitis and rheumatoid arthritis. Surgical history significant for neck surgery, cholecystectomy. Upon consultation, patient reports diagnosis of ulcerative colitis for 20 years. She reports that she has been on multiple medications that have not been effective. States she uses Pepto-Bismol [id number] and it is not effective as well. Last colonoscopy done 2017 revealed ulcerative colitis, microscopic colitis. Last EGD done in 2011 revealed a esophagitis. Patient denies any current medications taken for ulcerative colitis or rheumatoid arthritis. Patient states that she gets steroid shots as needed for rheumatoid arthritis discomfort. Our service has been consulted to evaluate patient for reported diarrhea, history of ulcerative colitis. Colitis Lymphocytic versus microscopic Patient presents with 2-3-week history of loose stools. Patient denies any noted bleeding denies abdominal pain. History of lymphocytic/microscopic colitis WBC 5.9 hemoglobin 14.2 hematocrit 40.7 BUN 43 creatinine 3.01 total bilirubin 0.5 AST 20 ALT 50 alk phos 250 11/11/2018 Patient reports loose stool every 2-3 hours this a.m. Denies any abdominal pain WBC 5.2 hemoglobin 12.2 hematocrit 35.5 platelet count 416 Total bilirubin 0.4 AST 12 ALT 36 alk phos 182 C-reactive protein 1.30 11/11/2018 MRCP- Prominence of the common bile duct most likely from post cholecystectomy reservoir changes, otherwise unremarkable. 11/12/2018 Rule out primary sclerosing cholangiopathy Patient reports 3 loose brown stools this a.m. without any noted bleeding Denies abdominal pain, nausea or vomiting We will trial steroids during hospitalization as patient reports "atrial fibrillation as past reaction to steroids" 11/11/2018 MRCP results as noted above: Images reviewed Plan -Cardiac diet -Questran 1 packet every 6 hours -C. difficile stool negative -Stool studies pending ova parasites and enteric pathogens -Mesalamine 800 mg 3 times daily -P- Anca pending-rule out PSC -Methylprednisone 30 mg IV every 12 hours -Colonoscopy as outpatient when diarrhea resolves -Supportive care -Further recommendations to follow This patient has been seen by myself and Dr. Chappell and this note is written on his behalf - Attending Attestation Dr. Chappell <Vilma Chaves - Last Filed: 11/12/18 17:22> (1) Colitis Status: Acute Code(s): K52.9 - Noninfective gastroenteritis and colitis, unspecified - Attending Attestation Patient seen and examined. Agree with above. <Delgado Chappell - Last Filed: 11/13/18 09:30>
--- NOTE | 2018-11-12 18:19 | P.DS ---
Date of admission: 11/10/18 14:40 Primary care physician: No Primary Care Physician Brief History from admission: 73-year-old female with PMH of depression, GERD, hysterectomy, hypertension, ulcerative colitis( for 20 years) and rheumatoid arthritis who presented to [facility] with complaints of intractable diarrhea, nausea, inability to eat. Patient reports she has a history of ulcerative colitis treated with multiple medications and failed, also follows at [facility] and was told she will need eventually a colectomy. States she has been having "exacerbations" for the past 3 weeks. Reports multiple episodes of diarrhea (~ 20), nonbloody and associated nausea with decreased PO intake and generalized weakness. She reports that she has been on multiple medications that have not been effective. States she uses Pepto-Bismol [id number] and it is not effective as well. Last colonoscopy done 2016 revealed ulcerative colitis, microscopic colitis. Last EGD done in 2011 revealed a esophagitis. Patient denies any current medications taken for ulcerative colitis or rheumatoid arthritis. Patient states that she gets steroid shots as needed for rheumatoid arthritis discomfort. The patient is noted with severe electrolyte imbalance, GIO due to intractable diarrhea, decreased PO intake. She received solumedrol in the ED and also was bolused. Gastroenterology consulted, discussed with Dr Cano, plans for colonoscopy on Tuesday Patient otherwise denies any abdominal pain. No fever or chills. No chest pain or sob she is attign well on room air. Patient denies urinary complaints except she has noticed less urination. DS: Medications - Discharge Medications Prescriptions: cholestyramine (with sugar) 4 gm PO Q6HR #120 ea mesalamine 400 mg PO TID #90 tab ondansetron HCl [Zofran] 4 mg PO TID-QID PRN #60 tab PRN Reason: nausea/vomiting prednisone 5 mg PO PER PKG DIR #119 each DS: Summary Hospital Course: Colitis - Lymphocytic versus microscopic Patient presents with 2-3-week history of loose stools. Patient denies any noted bleeding denies abdominal pain. History of lymphocytic/microscopic colitis WBC 5.9 hemoglobin 14.2 hematocrit 40.7 probable GIO on CKDwith BUN 43 creatinine 3.01 on admission ,imprpving to baseline total bilirubin 0.5 AST 20 ALT 50 alk phos 250 Hypokalemia, resolved Hyponatremia , resolved GERD Depression Diet as tolerated IBD panel C diff is negative P- Anca pending-rule out PSC Stool studies pending Hold colonoscopy untul diarrhea resolved, can be done as OP per GI Continue Questran 1 packet every 6 hours Started on Mesalamine 800 mg 3 times daily Started on Methylprednisone 30 mg IV every 12 hours, taper prednisone Prednisone taper dose at DC Patient to have colonoscopy as OP with GI. Has GI back home , has appointment, she can also follow up with GI here. Restart home meds as tolerated C. difficile stool neg Stool studies CT abdomen and pelvis without contrast reviewed Zofran IV prn IVF 0.9 NS. Na back to normal. encourage PO intake Continue to monitor and replace potassium as need Monitor and replace electrolytes as need DVT ppx scd /teds Records reviewed Discussed with the patient, at bedside, nurse, GI service Patient improved. DC home in stable condition, to follow up as oP with PCP and consultants. - Time Spent with Patient Total time spent providing and/or coordinating discharge services: Greater than 30 minutes - Quality: VTE Deep Vein Thrombosis/Pulmonary Embolism Present on Admission: No Exam Vital signs: Vital Signs 11/11/18 19:26 11/11/18 23:28 11/12/18 08:00 Temperature 98.0 F 98.0 F 98.1 F Pulse Rate 67 84 70 Respiratory Rate 17 16 18 Blood Pressure 112/60 112/57 L 134/63 Pulse Oximetry 98 97 99 11/12/18 12:00 11/12/18 16:00 Temperature 97.9 F 97.9 F Pulse Rate 70 77 Respiratory Rate 18 18 Blood Pressure 132/73 123/62 Pulse Oximetry 97 98 Intake & Output 11/11/18 11/12/18 11/12/18 18:59 06:59 18:59 Intake Total 1960 / 1960 1600 / 1600 1999 Output Total 500 / 500 1500 / 1500 Balance 1460 / 1460 100 / 100 1999 / 1999 Weight 84.3 kg Intake: IV 1000 / 1000 1000 / 1000 1999 / 1999 NS Inj 1,000 ML @ 100 mls/hr IV 1000 / 1000 1000 / 1000 1999 .CONT .Q10H ANNIE Rx#:[id number] Oral 960 / 960 600 / 600 Output: Urine 500 / 500 1500 / 1500 Other: Date of Last Bowel Movement 11/11/18 11/12/18 11/12/18 # Bowel Movements 3 Narrative: GENERAL: Very pleasant 73 yo female, well nourished, well developed, appears in nad. CARDIOVASCULAR: Regular rate and rhythm. RESPIRATORY: No accessory muscle use. Clear to auscultation. Breath sounds equal bilaterally. GASTROINTESTINAL: Abdomen soft, non-tender, nondistended. Hepatic and splenic margins not palpable. MUSCULOSKELETAL: Extremities without clubbing, cyanosis, or edema. No obvious deformities. NEUROLOGICAL: Awake and alert. No obvious cranial nerve deficits. Motor grossly within normal limits. Five out of 5 muscle strength in the arms and legs. Normal speech. PSYCHIATRIC: Appropriate mood and affect; insight and judgment normal. Results Procedures completed during hospitalization: none Labs on day of discharge: Labs from last 24 hours 11/12/18 11/12/18 11/11/18 05:39 05:39 05:19 Sodium 143 Potassium 3.6 Chloride 112 H D Carbon Dioxide 24.3 Anion Gap 7 BUN 23 H Creatinine 1.45 H Estimated GFR 36 L Random Glucose 88 Calcium 7.9 L Magnesium Cancelled 1.8 Stl C.difficile DNA Amp Negative St C. diff Tox Epid 027 Negative - Impressions ITS Impressions Abdomen/Pelvis CT 11/10/18 18:28 CONCLUSION: Essentially unremarkable study. Cholangiopancreatography MRI 11/11/18 00:00 CONCLUSION: 1. Prominence of the common bile duct most likely from post cholecystectomy reservoir changes, otherwise unremarkable. Discharge Plan - Discharge Disposition Patient Disposition: 01 Discharge Home - Discharge Condition Condition: Stable - Discharge Order Discharge Orders: Discharge Order (Routine); Ordered 11/13/18 Ordered By: Arlette Godwin ED Use Only Admit Order (Routine); Ordered 11/10/18 Ordered By: Rosa Frank - Discharge Details Anticipated Discharge Date: 11/14/18 - Physicians Team Primary Care Provider: Primary Care Noa,Dora Attending Provider: Arlette Godwin Other Providers: Geovany Cano MD
[2018-11-12] MEDS: Nortriptyline 10 MG Capsule PO SCH (21:27)
[2018-11-13] MEDS: Sod Chloride 0.9% Inj 1,000 ML IV.CONT SCH ×3 (03:22→22:41)
[2018-11-13 07:15] LABS: Calcium 7.6 mg/dL (8.5-10.1); Carbon Dioxide 23.8 meq/L (21.0-32.0); Potassium 4.1 meq/L (3.5-5.1)
[2018-11-13] MEDS: Mesalamine 800 MG Tablet DR PO SCH ×3 (08:07→17:12)
[2018-11-13] MEDS: MethylPREDNISolone Sod Succinate Inj 40 MG/ML Vial IV.PUSH SCH ×2 (08:22→21:28)
--- NOTE | 2018-11-13 11:28 | P.PNGI ---
Subjective Interval history: Patient awake and alert sitting up in chair at bedside Spouse visiting Patient reports continued loose stools Denies less frequency No nausea or vomiting or reported bleeding <Vilma Chaves - Last Filed: 11/13/18 11:20> Physical Exam Vital signs: Vital Signs 11/12/18 12:00 11/12/18 16:00 11/12/18 19:57 Temperature 97.9 F 97.9 F 97.8 F Pulse Rate 70 77 68 Respiratory Rate 18 18 17 Blood Pressure 132/73 123/62 118/75 Pulse Oximetry 97 98 98 11/12/18 23:51 11/13/18 07:23 Temperature 97.9 F 97.8 F Pulse Rate 75 73 Respiratory Rate 17 16 Blood Pressure 131/62 146/72 H Pulse Oximetry 95 95 Intake & Output 11/12/18 11/13/18 11/13/18 18:59 06:59 18:59 Intake Total 2950 / 2950 1840 / 1840 Output Total 800 / 800 1125 / 1125 Balance 2150 / 2150 715 / 715 Weight 86.3 kg Intake: IV 1999 / 1999 1000 / 1000 NS Inj 1,000 ML @ 100 mls/hr IV 1999 / 1999 1000 / 1000 .CONT .Q10H ANNIE Rx#:[id number] Oral 950 / 950 840 / 840 Output: Urine 800 / 800 1125 / 1125 Other: Date of Last Bowel Movement 11/12/18 11/12/18 11/12/18 # Bowel Movements 0 - Constitutional no acute distress - Routine HEENT Exam Head: Present: normocephalic - Routine Respiratory Exam Present: CTA bilaterally. Absent: accessory muscle use - Routine Cardiovascular Exam Present: RRR, S1, S2 - Routine Abdominal Exam Present: soft, normoactive bowel sounds. Absent: tenderness, distended, guarding, firm - Routine Extremities Exam Absent: edema - Routine Skin Exam Present: dry, warm. Absent: pallor - Routine Neurological Exam Present: alert - Routine Psychiatric Exam Present: normal affect, cooperative <Vilma Chaves - Last Filed: 11/13/18 11:20> Vital signs: Vital Signs 11/12/18 12:00 11/12/18 16:00 11/12/18 19:57 Temperature 97.9 F 97.9 F 97.8 F Pulse Rate 70 77 68 Respiratory Rate 18 18 17 Blood Pressure 132/73 123/62 118/75 Pulse Oximetry 97 98 98 11/12/18 23:51 11/13/18 07:23 Temperature 97.9 F 97.8 F Pulse Rate 75 73 Respiratory Rate 17 16 Blood Pressure 131/62 146/72 H Pulse Oximetry 95 95 Intake & Output 11/12/18 11/13/18 11/13/18 18:59 06:59 18:59 Intake Total 2950 / 2950 1840 / 1840 Output Total 800 / 800 1125 / 1125 Balance 2150 / 2150 715 / 715 Weight 86.3 kg Intake: IV 1999 1000 / 1000 NS Inj 1,000 ML @ 100 mls/hr IV 1999 / 1999 1000 / 1000 .CONT .Q10H ANNIE Rx#:[id number] Oral 950 / 950 840 / 840 Output: Urine 800 / 800 1125 / 1125 Other: Date of Last Bowel Movement 11/12/18 11/12/18 11/12/18 # Bowel Movements 0 <Delgado Chappell - Last Filed: 11/13/18 11:33> Results - Labs CBC & Chem 7: 11/11/18 05:26 11/13/18 05:39 Laboratory Results - last 24 hr 11/13/18 05:39 Sodium 145 Potassium 4.1 Chloride 114 H Carbon Dioxide 23.8 Anion Gap 7 BUN 18 Creatinine 1.22 H Estimated GFR 43 L Random Glucose 118 H Calcium 7.6 L <Vilma Chaves - Last Filed: 11/13/18 11:20> - Labs CBC & Chem 7: 11/11/18 05:26 11/13/18 05:39 Laboratory Results - last 24 hr 11/13/18 05:39 Sodium 145 Potassium 4.1 Chloride 114 H Carbon Dioxide 23.8 Anion Gap 7 BUN 18 Creatinine 1.22 H Estimated GFR 43 L Random Glucose 118 H Calcium 7.6 L <Delgado Chappell - Last Filed: 11/13/18 11:33> Assessment and Plan (1) Colitis Status: Acute Code(s): K52.9 - Noninfective gastroenteritis and colitis, unspecified - Plan Patient is a 73-year-old female who presented to [facility] with complaints of diarrhea. Patient reports she has history of ulcerative colitis. States she has been having "exacerbation" for the past 3 weeks. Reports multiple episodes of diarrhea and generalized weakness. Patient reports past medical history significant for depression, GERD, hysterectomy, hypertension, ulcerative colitis and rheumatoid arthritis. Surgical history significant for neck surgery, cholecystectomy. Upon consultation, patient reports diagnosis of ulcerative colitis for 20 years. She reports that she has been on multiple medications that have not been effective. States she uses Pepto-Bismol [id number] and it is not effective as well. Last colonoscopy done 2016 revealed ulcerative colitis, microscopic colitis. Last EGD done in 2011 revealed a esophagitis. Patient denies any current medications taken for ulcerative colitis or rheumatoid arthritis. Patient states that she gets steroid shots as needed for rheumatoid arthritis discomfort. Our service has been consulted to evaluate patient for reported diarrhea, history of ulcerative colitis. Colitis Lymphocytic versus microscopic Patient presents with 2-3-week history of loose stools. Patient denies any noted bleeding denies abdominal pain. History of lymphocytic/microscopic colitis WBC 5.9 hemoglobin 14.2 hematocrit 40.7 BUN 43 creatinine 3.01 total bilirubin 0.5 AST 20 ALT 50 alk phos 250 11/11/2018 Patient reports loose stool every 2-3 hours this a.m. Denies any abdominal pain WBC 5.2 hemoglobin 12.2 hematocrit 35.5 platelet count 416 Total bilirubin 0.4 AST 12 ALT 36 alk phos 182 C-reactive protein 1.30 11/11/2018 MRCP- Prominence of the common bile duct most likely from post cholecystectomy reservoir changes, otherwise unremarkable. 11/12/2018 Rule out primary sclerosing cholangiopathy Patient reports 3 loose brown stools this a.m. without any noted bleeding Denies abdominal pain, nausea or vomiting We will trial steroids during hospitalization as patient reports "atrial fibrillation as past reaction to steroids" 11/11/2018 MRCP results as noted above: Images reviewed 11/13/2018 Patient up at bedside Reports continued loose brown stools without any noted bleeding, denies change in frequency Denies abdominal pain nausea or vomiting Methyl prednisone 30 mg IV every 12 hours Plan -Cardiac diet -DC Questran -Mesalamine 800 mg 3 times daily -P Anca pending -Continue methylprednisone 30 mg IV every 12 -Possible DC home tomorrow with prednisone taper -Prednisone 40 mg daily for 1 week then 30 mg daily for 3 days 25 mg p.o. for 3 days, 20 mg p.o. for 3 days 15 mg p.o. daily for 3 days, 10 mg p.o. daily for 3 days 5 mg p.o. daily for 3 days then stop. -Patient will need to follow-up with GI in 1-2 weeks. -Recommend colonoscopy as outpatient when diarrhea resolves -Supportive care -Further recommendations to follow This patient has been seen by myself and Dr. Chappell and this note is written on his behalf - Attending Attestation Dr. Chappell <Vilma Chaves - Last Filed: 11/13/18 11:20> (1) Colitis Status: Acute Code(s): K52.9 - Noninfective gastroenteritis and colitis, unspecified - Attending Attestation I have seen and examined the patient. Agree with above. <Delgado Chappell - Last Filed: 11/13/18 11:33>
[2018-11-13 11:45] VITALS: RESP 18
[2018-11-13 14:47] LABS: Alanine Aminotransferase 25 U/L (10-53); Albumin 2.5 g/dL (3.4-5.0); Anion Gap 10 meq/L (5-15); Aspartate Aminotransferase 10 U/L (15-37); Blood Urea Nitrogen 19 mg/dL (7-18); Calcium 7.8 mg/dL (8.5-10.1); Carbon Dioxide 21.2 meq/L (21.0-32.0); Chloride 114 meq/L (98-107); Glomerular Filtration Rate 44 mL/min (>89); Glucose,Random 115 mg/dL (74-106); Potassium 4.1 meq/L (3.5-5.1); Sodium 145 meq/L (136-145)
[2018-11-13 14:49] LABS: Alkaline Phosphatase 132 U/L (45-117); Total Protein 6.2 g/dL (6.4-8.2)
--- NOTE | 2018-11-13 17:00 | P.PN ---
Subjective Interval history: Patient is in the chair. Since she is still with significant diarrhea and wants to improve more with prednisone. No fever or chills overnight. Less nausea. Physical Exam Vital signs: Vital Signs 11/12/18 19:57 11/12/18 23:51 11/13/18 07:23 Temperature 97.8 F 97.9 F 97.8 F Pulse Rate 68 75 73 Respiratory Rate 17 17 16 Blood Pressure 118/75 131/62 146/72 H Pulse Oximetry 98 95 95 11/13/18 11:42 11/13/18 14:58 Temperature 97.7 F 97.8 F Pulse Rate 67 82 Respiratory Rate 18 18 Blood Pressure 147/70 H 136/64 Pulse Oximetry 96 98 Intake & Output 11/12/18 11/13/18 11/13/18 18:59 06:59 18:59 Intake Total 2950 / 2950 1840 / 1840 1480 / 1480 Output Total 800 / 800 1125 / 1125 400 / 400 Balance 2150 / 2150 715 / 715 1080 / 1080 Weight 86.3 kg Intake: IV 2000 / 1999 1000 / 1000 1000 / 1000 NS Inj 1,000 ML @ 100 mls/hr IV 2000 / 2000 1000 / 1000 1000 / 1000 .CONT .Q10H ANNIE Rx#:[id number] Oral 950 / 950 840 / 840 480 / 480 Output: Urine 800 / 800 1125 / 1125 400 / 400 Other: Date of Last Bowel Movement 11/12/18 11/12/18 11/12/18 # Bowel Movements 0 Narrative: GENERAL: Very pleasant 73 yo female, well nourished, well developed, appears in nad. CARDIOVASCULAR: Regular rate and rhythm. RESPIRATORY: No accessory muscle use. Clear to auscultation. Breath sounds equal bilaterally. GASTROINTESTINAL: Abdomen soft, non-tender, nondistended. Hepatic and splenic margins not palpable. MUSCULOSKELETAL: Extremities without clubbing, cyanosis, or edema. No obvious deformities. NEUROLOGICAL: Awake and alert. No obvious cranial nerve deficits. Motor grossly within normal limits. Five out of 5 muscle strength in the arms and legs. Normal speech. PSYCHIATRIC: Appropriate mood and affect; insight and judgment normal. Results - Labs CBC & Chem 7: 11/11/18 05:26 11/13/18 09:35 Laboratory Results - last 24 hr 11/13/18 11/13/18 05:39 09:35 Sodium 145 145 Potassium 4.1 4.1 Chloride 114 H 114 H Carbon Dioxide 23.8 21.2 Anion Gap 7 10 BUN 18 19 H Creatinine 1.22 H 1.20 H Estimated GFR 43 L 44 L Random Glucose 118 H 115 H Calcium 7.6 L 7.8 L Total Bilirubin 0.3 AST 10 L ALT 25 Alkaline Phosphatase 132 H Total Protein 6.2 L D Albumin 2.5 L Assessment and Plan - Plan Colitis Lymphocytic versus microscopic Patient presents with 2-3-week history of loose stools. Patient denies any noted bleeding denies abdominal pain. History of lymphocytic/microscopic colitis WBC 5.9 hemoglobin 14.2 hematocrit 40.7 probable GIO on CKDwith BUN 43 creatinine 3.01 on admission ,imprpving to baseline total bilirubin 0.5 AST 20 ALT 50 alk phos 250 Hypokalemia, resolved Hyponatremia , resolved GERD Depression Diet as tolerated IBD panel C diff is negative P- Anca pending-rule out PSC Stool studies pending Hold colonoscopy untul diarrhea resolved, can be done as OP per GI Continue Questran 1 packet every 6 hours Started on Mesalamine 800 mg 3 times daily Started on Methylprednisone 30 mg IV every 12 hours, taper prednisone Restart home meds as tolerated C. difficile stool Stool studies CT abdomen and pelvis without contrast reviewed Zofran IV prn IVF 0.9 NS Continue to monitor and replace potassium as need Monitor and replace electrolytes as need DVT ppx scd /teds Records reviewed Discussed with the patient, at bedside, nurse, GI service DC plan: Poss DC tomorrow if improved and cleared by GI
[2018-11-13] MEDS: Nortriptyline 10 MG Capsule PO SCH (21:29)
[2018-11-14 06:12] LABS: Calcium 7.8 mg/dL (8.5-10.1); Carbon Dioxide 23.1 meq/L (21.0-32.0); Potassium 4.3 meq/L (3.5-5.1)
[2018-11-14] MEDS: Mesalamine 800 MG Tablet DR PO SCH ×3 (07:25→13:01)
[2018-11-14] MEDS: MethylPREDNISolone Sod Succinate Inj 40 MG/ML Vial IV.PUSH SCH ×2 (07:26→09:19)
[2018-11-14] MEDS: Sod Chloride 0.9% Inj 1,000 ML IV.CONT SCH ×2 (07:27→09:56)
[2018-11-14 08:51] VITALS: O2SAT 98
--- NOTE | 2018-11-14 08:56 | P.PNIM ---
Subjective Interval history: Patient is seen sitting up in bed eating breakfast. She tells me that her diarrhea has significantly improved. No bloody stools. No nausea or vomiting. She would like to go home today if possible. Physical Exam Vital signs: Last Vital Signs Temp 97.9 F 11/14/18 07:46 Pulse 69 11/14/18 07:46 Resp 18 11/14/18 07:46 BP 145/70 H 11/14/18 07:46 Pulse Ox 98 11/14/18 07:46 Intake & Output 11/12/18 11/13/18 11/14/18 11/15/18 06:59 06:59 06:59 06:59 Intake Total 3560 / 3560 4790 / 4790 3440 / 3440 1000 / 1000 Output Total 1999 / 1999 1925 / 1925 2200 / 2200 Balance 1560 / 1560 2865 / 2865 1240 / 1240 1000 / 1000 Weight 84.3 kg 86.3 kg 86.3 kg Narrative: GENERAL: Well-nourished, well-developed adult female in no obvious distress. SKIN: Warm and dry. HEAD: Atraumatic. Normocephalic. CARDIOVASCULAR: Regular rate and rhythm. RESPIRATORY: No accessory muscle use. Clear to auscultation. Breath sounds equal bilaterally. GASTROINTESTINAL: Abdomen soft, non-tender, non-distended. Positive bowel sounds. MUSCULOSKELETAL: Extremities without clubbing, cyanosis, or edema. No obvious deformities. NEUROLOGICAL: Awake and alert. No obvious cranial nerve deficits. Motor grossly within normal limits. Normal speech. PSYCHIATRIC: Appropriate mood and affect; insight and judgment good. Results Labs CBC & Chem 7: 11/11/18 05:26 11/14/18 04:09 Assessment and Plan Plan Diet as tolerated IBD panel C diff is negative P- Anca pending-rule out PSC Stool studies pending Hold colonoscopy untul diarrhea resolved, can be done as OP per GI Continue Questran 1 packet every 6 hours Started on Mesalamine 800 mg 3 times daily Started on Methylprednisone 30 mg IV every 12 hours, taper prednisone as per GI note Continue to monitor and replace potassium as need Monitor and replace electrolytes as need DVT ppx scd /teds Progress Note: Quality VTE Deep Vein Thrombosis/Pulmonary Embolism Present on Admission: No
--- NOTE | 2018-11-14 09:03 | P.DS ---
DS: Providers Date of admission: 11/10/18 14:40 Primary care physician: No Primary Care Physician Consults: 11/10/18 15:29 Consult to Gastroenterology Routine Consulting Provider: Geovany Cano V Reason for Consultation: intractable diarrhea with electrolytes abnormalities and GIO Notified:: Office Spoke with:: magali Date Notified:: 11/10/18 Time Notified:: 15:31 Ordering Provider: VIN Brief History from admission: 73-year-old female with PMH of depression, GERD, hysterectomy, hypertension, ulcerative colitis( for 20 years) and rheumatoid arthritis who presented to [facility] with complaints of intractable diarrhea, nausea, inability to eat. Patient reports she has a history of ulcerative colitis treated with multiple medications and failed, also follows at [facility] and was told she will need eventually a colectomy. States she has been having "exacerbations" for the past 3 weeks. Reports multiple episodes of diarrhea (~ 20), nonbloody and associated nausea with decreased PO intake and generalized weakness. She reports that she has been on multiple medications that have not been effective. States she uses Pepto-Bismol [id number] and it is not effective as well. Last colonoscopy done 2017 revealed ulcerative colitis, microscopic colitis. Last EGD done in 2011 revealed a esophagitis. Patient denies any current medications taken for ulcerative colitis or rheumatoid arthritis. Patient states that she gets steroid shots as needed for rheumatoid arthritis discomfort. The patient is noted with severe electrolyte imbalance, GIO due to intractable diarrhea, decreased PO intake. She received solumedrol in the ED and also was bolused. Gastroenterology consulted, discussed with Dr Cano, plans for colonoscopy on Tuesday Patient otherwise denies any abdominal pain. No fever or chills. No chest pain or sob she is attign well on room air. Patient denies urinary complaints except she has noticed less urination. DS: Diagnosis Discharge Diagnosis (1) Dehydration: Status: Resolved (2) GIO (acute kidney injury): Status: Resolved (3) Acute hypokalemia: Status: Resolved (4) Acute hyponatremia: Status: Resolved (5) Colitis: Status: Chronic DS: Summary Patient was admitted with dehydration and electrolyte imbalance secondary to diarrhea related to colitis. GI was consulted. C. difficile ruled out. Patient did respond to steroids and improved; will do steroid taper on discharge. Electrolytes replaced and remained stable with rehydration. Patient recommended to follow-up with GI for colonoscopy after diarrhea resolves. Time Spent with Patient Total time spent providing and/or coordinating discharge services: <30 min Quality: VTE Deep Vein Thrombosis/Pulmonary Embolism Present on Admission: No Exam Narrative Exam Narrative: GENERAL: Well-nourished, well-developed adult female in no obvious distress. SKIN: Warm and dry. HEAD: Atraumatic. Normocephalic. CARDIOVASCULAR: Regular rate and rhythm. RESPIRATORY: No accessory muscle use. Clear to auscultation. Breath sounds equal bilaterally. GASTROINTESTINAL: Abdomen soft, non-tender, non-distended. Positive bowel sounds. MUSCULOSKELETAL: Extremities without clubbing, cyanosis, or edema. No obvious deformities. NEUROLOGICAL: Awake and alert. No obvious cranial nerve deficits. Motor grossly within normal limits. Normal speech. PSYCHIATRIC: Appropriate mood and affect; insight and judgment good. Results Labs on day of discharge: Labs from last 24 hours 11/14/18 11/13/18 04:09 09:35 Sodium 144 145 Potassium 4.3 4.1 Chloride 115 H 114 H Carbon Dioxide 23.1 21.2 Anion Gap 6 10 BUN 16 19 H Creatinine 1.15 H 1.20 H Estimated GFR 47 L 44 L Random Glucose 115 H 115 H Calcium 7.8 L 7.8 L Total Bilirubin 0.3 AST 10 L ALT 25 Alkaline Phosphatase 132 H Total Protein 6.2 L D Albumin 2.5 L Impressions ITS Impressions Abdomen/Pelvis CT 11/10/18 18:28 CONCLUSION: Essentially unremarkable study. Cholangiopancreatography MRI 11/11/18 00:00 CONCLUSION: 1. Prominence of the common bile duct most likely from post cholecystectomy reservoir changes, otherwise unremarkable. Discharge Plan Discharge Disposition Patient Disposition: Discharge Home Discharge Condition Condition: Stable Discharge Order Discharge Orders: Discharge Order (Routine); Ordered 11/13/18 Ordered By: Arlette Godwin Discharge Details Anticipated Discharge Date: 11/14/18 Physicians Team ED Provider: Rosa Frank Primary Care Provider: Primary Care Noa,Dora Attending Provider: Arlette Godwin Other Providers: Geovany Cano V Rxs /Orders / Referrals /Forms Prescriptions: New cholestyramine (with sugar) 4 gram Powder In Packet 4 gm PO Q6HR Qty: 120 RF: 0 mesalamine 800 mg Tablet,Delayed Release (Dr/Ec) 400 mg PO TID Qty: 90 RF: 0 ondansetron HCl [Zofran] 4 mg Tablet 4 mg PO TID-QID PRN (Reason: nausea/vomiting ) Qty: 60 RF: 0 prednisone 5 mg Tablets,Dose Pack 5 mg PO PER PKG DIR Qty: 119 RF: 0 Continue multivitamin [Multiple Vitamins] Tablet 1 tab PO DAILY RF: 0 hydrochlorothiazide 50 mg Tablet 50 mg PO DAILY RF: 0 metoprolol succinate 100 mg Tablet Extended Release 24 Hr 100 mg PO DAILY RF: 0 diphenoxylate-atropine [Lomotil] 2.5-0.025 mg Tablet 2 tab PO QID RF: 0 pantoprazole [Protonix] 40 mg Tablet,Delayed Release (Dr/Ec) 80 mg PO DAILY RF: 0 nortriptyline 10 mg Capsule 10 mg PO HS RF: 0 codeine sulfate 30 mg Tablet 30 mg PO TID PRN (Reason: Diarrhea) RF: 0 albuterol sulfate [ProAir HFA] 90 mcg/actuation Hfa Aerosol Inhaler 2 puff INHALATION Q4-6H PRN (Reason: Wheezing) RF: 0 Lactobacillus rhamnosus GG 10 billion cell Capsule 1 cap PO DAILY RF: 0 fluticasone [Flovent HFA] 110 mcg/actuation Hfa Aerosol Inhaler 1 puff INHALATION BID PRN (Reason: Shortness Of Breath) RF: 0 duloxetine 20 mg Capsule,Delayed Release(Dr/Ec) 20 mg PO DAILY RF: 0 opium tincture 10 mg/mL (morphine) Tincture 0.7 ml PO QID PRN (Reason: Diarrhea) RF: 0 calcium carbonate-vitamin D3 [Calcium with Vitamin D] 600 mg(1,500mg) -400 unit Tablet 1 tab PO DAILY RF: 0 omega-3 fatty acids-fish oil [Fish Oil] 360-1,200 mg Capsule 1 cap PO DAILY RF: 0 magnesium chloride 64 mg Tablet,Delayed Release (Dr/Ec) 64 mg PO DAILY RF: 0 cholecalciferol (vitamin D3) [Vitamin D3] 5,000 unit Tablet 5,000 unit PO DAILY RF: 0 Referrals: Geovany Cano MD [Physician] - See Instructions ( Please call the physician's office to book the appointment to be seen within [1-2 weeks ]. You have pending lab results that this physician will be able to review with you.) Primary Care VictorinaiDora [Primary Care Provider] - See Instructions ( Please call the physician's office to book the appointment to be seen within [2-3 days ].) Discharge Instructions Patient Printed Instructions: Cholestyramine (By mouth), Prednisone (By mouth) , Mesalamine (By mouth), Ondansetron (By mouth), Dehydration (DC), Acute Kidney Injury (DC), Hyponatremia (DC), Chronic Diarrhea (DC), Hypocalcemia (DC), Fall Prevention (DC) Additional Instructions: FOLLOW UP WITH GI AND YOUR PCP PROVIDERS. PRESCRIPTIONS SENT AT TIME OF DISCHARGE. PLEASE TAKE ALL MEDICATIONS PRESCRIBED. IF YOUR CONDITION WORSENS RETURN TO THE ED OR YOU MAY CONTACT YOUR PCP. Post Discharge Care Plan Care Plan Goals: Your Health Problems: Goals to Promote Your Health: * To prevent worsening of your condition * To maintain your health at the optimal level Directions to Meet Your Goals: * Take your medications as prescribed * Follow your dietary instruction * Follow activity as directed * Keep your appointments as scheduled * Take your immunizations and boosters as scheduled * If your symptoms worsen call your PCP * If no PCP go to Urgent Care or Emergency Room Smoking is dangerous to your health. Avoid second hand smoke. You may reach the 24-hour crisis hotline for domestic abuse at . Status ED Status: Left Department
[2018-11-14 12:59] VITALS: BP 159/79; PULSE 67; TEMP 98.4
--- NOTE | 2018-11-14 17:44 | P.PNGI ---
Subjective Interval history: Patient awake and alert Ambulating in patient room Reports 4 BMs this a.m. States less frequent, denies abdominal pain States feels much better and would like to be discharged home <Vilma Chaves - Last Filed: 11/14/18 17:32> Physical Exam Vital signs: Vital Signs 11/13/18 19:10 11/13/18 23:40 11/14/18 03:55 Temperature 97.9 F 98.5 F 98.5 F Pulse Rate 65 65 73 Respiratory Rate 18 18 Blood Pressure 147/80 H 146/68 H 152/69 H Pulse Oximetry 98 97 95 11/14/18 07:46 11/14/18 11:33 Temperature 97.9 F 98.4 F Pulse Rate 69 67 Respiratory Rate 18 Blood Pressure 145/70 H 159/79 H Pulse Oximetry 98 98 Intake & Output 11/13/18 11/14/18 11/14/18 18:59 06:59 18:59 Intake Total 1480 / 1480 1960 / 1960 2490 / 2490 Output Total 400 / 400 1800 / 1800 Balance 1080 / 1080 160 / 160 2490 / 2490 Weight 86.3 kg Intake: IV 1000 / 1000 1000 / 1000 2490 / 2490 NS Inj 1,000 ML @ 100 mls/hr IV 1000 / 1000 1000 / 1000 2490 / 2490 .CONT .Q10H ANNIE Rx#:[id number] Oral 480 / 480 960 / 960 Output: Urine 400 / 400 1800 / 1800 Other: Date of Last Bowel Movement 11/12/18 11/14/18 11/14/18 # Bowel Movements 1 - Constitutional no acute distress - Routine HEENT Exam Head: Present: normocephalic - Routine Respiratory Exam Present: CTA bilaterally - Routine Cardiovascular Exam Present: RRR - Routine Abdominal Exam Present: soft, normoactive bowel sounds. Absent: tenderness, distended - Routine Skin Exam Present: dry, warm - Routine Neurological Exam Present: alert - Routine Psychiatric Exam Present: normal affect, cooperative <Vilma Chaves - Last Filed: 11/14/18 17:32> Vital signs: Vital Signs 11/14/18 11:33 Temperature 98.4 F Pulse Rate 67 Respiratory Rate 18 Blood Pressure 159/79 H Pulse Oximetry 98 Intake & Output 11/14/18 11/15/18 11/15/18 18:59 06:59 18:59 Intake Total 2490 / 2490 Balance 2490 / 2490 Intake: IV 2490 / 2490 NS Inj 1,000 ML @ 100 mls/hr IV 2490 / 2490 .CONT .Q10H ANNIE Rx#:[id number] Other: Date of Last Bowel Movement 11/14/18 <Delgado Chappell - Last Filed: 11/15/18 09:06> Results - Labs CBC & Chem 7: 11/11/18 05:26 11/14/18 04:09 Laboratory Results - last 24 hr 11/14/18 04:09 Sodium 144 Potassium 4.3 Chloride 115 H Carbon Dioxide 23.1 Anion Gap 6 BUN 16 Creatinine 1.15 H Estimated GFR 47 L Random Glucose 115 H Calcium 7.8 L Microbiology 11/11/18 05:19 Stool Cryptosporidium Antigen - Final Negative - No Cryptosporicium antigen detected In selected cases of patients with a history of immunosuppression or foreign travel, a full ova and parasites examination may be desired. Contact the microbiology lab if full workup is indicated and subit another specimen for testing. 11/11/18 05:19 Stool Giardia Antigen (MARCO) - Final Negative - No Giardia Antigen detected In selected cases of patients with a history of immunosuppression or foreign travel, a full ova and parasites examination may be desired. Contact the microbiology lab if full workup is indicated and subit another specimen for testing. - Procedures none <Vilma Chaves - Last Filed: 11/14/18 17:32> - Labs CBC & Chem 7: 11/11/18 05:26 11/14/18 04:09 Microbiology 11/11/18 05:19 Stool Cryptosporidium Antigen - Final Negative - No Cryptosporicium antigen detected In selected cases of patients with a history of immunosuppression or foreign travel, a full ova and parasites examination may be desired. Contact the microbiology lab if full workup is indicated and subit another specimen for testing. 11/11/18 05:19 Stool Giardia Antigen (MARCO) - Final Negative - No Giardia Antigen detected In selected cases of patients with a history of immunosuppression or foreign travel, a full ova and parasites examination may be desired. Contact the microbiology lab if full workup is indicated and subit another specimen for testing. <Delgado Chappell - Last Filed: 11/15/18 09:06> Assessment and Plan (1) Colitis Status: Chronic Code(s): K52.9 - Noninfective gastroenteritis and colitis, unspecified - Plan Patient is a 73-year-old female who presented to [facility] with complaints of diarrhea. Patient reports she has history of ulcerative colitis. States she has been having "exacerbation" for the past 3 weeks. Reports multiple episodes of diarrhea and generalized weakness. Patient reports past medical history significant for depression, GERD, hysterectomy, hypertension, ulcerative colitis and rheumatoid arthritis. Surgical history significant for neck surgery, cholecystectomy. Upon consultation, patient reports diagnosis of ulcerative colitis for 20 years. She reports that she has been on multiple medications that have not been effective. States she uses Pepto-Bismol [id number] and it is not effective as well. Last colonoscopy done 2016 revealed ulcerative colitis, microscopic colitis. Last EGD done in 2011 revealed a esophagitis. Patient denies any current medications taken for ulcerative colitis or rheumatoid arthritis. Patient states that she gets steroid shots as needed for rheumatoid arthritis discomfort. Our service has been consulted to evaluate patient for reported diarrhea, history of ulcerative colitis. Colitis Lymphocytic versus microscopic Patient presents with 2-3-week history of loose stools. Patient denies any noted bleeding denies abdominal pain. History of lymphocytic/microscopic colitis WBC 5.9 hemoglobin 14.2 hematocrit 40.7 BUN 43 creatinine 3.01 total bilirubin 0.5 AST 20 ALT 50 alk phos 250 11/11/2018 Patient reports loose stool every 2-3 hours this a.m. Denies any abdominal pain WBC 5.2 hemoglobin 12.2 hematocrit 35.5 platelet count 416 Total bilirubin 0.4 AST 12 ALT 36 alk phos 182 C-reactive protein 1.30 11/11/2018 MRCP- Prominence of the common bile duct most likely from post cholecystectomy reservoir changes, otherwise unremarkable. 11/12/2018 Rule out primary sclerosing cholangiopathy Patient reports 3 loose brown stools this a.m. without any noted bleeding Denies abdominal pain, nausea or vomiting We will trial steroids during hospitalization as patient reports "atrial fibrillation as past reaction to steroids" 11/11/2018 MRCP results as noted above: Images reviewed 11/13/2018 Patient up at bedside Reports continued loose brown stools without any noted bleeding, denies change in frequency Denies abdominal pain nausea or vomiting Methyl prednisone 30 mg IV every 12 hours 11/14/2018 Patient up ambulating in room Reports less frequent stools, states 4 BMs this a.m. Denies any abdominal pain nausea vomiting Stable for discharge home from GI standpoint with prednisone Plan -Mesalamine 800 mg 3 times daily -P Anca pending -Prednisone 40 mg daily for 1 week then 30 mg daily for 3 days 25 mg p.o. for 3 days, 20 mg p.o. for 3 days 15 mg p.o. daily for 3 days, 10 mg p.o. daily for 3 days 5 mg p.o. daily for 3 days then stop. -Patient will need to follow-up with GI in 1-2 weeks. -Recommend colonoscopy as outpatient when diarrhea resolves -Supportive care -Patient stable from GI standpoint for discharge home with prednisone taper, patient agrees to follow-up with GI This patient has been seen by myself and Dr. Chappell and this note is written on his behalf - Attending Attestation Dr. Chappell <Vilma Chaves - Last Filed: 11/14/18 17:32> (1) Colitis Status: Chronic Code(s): K52.9 - Noninfective gastroenteritis and colitis, unspecified - Attending Attestation I have seen and examined the patient. I agree with the above note and recommendations. <Delgado Chappell - Last Filed: 11/15/18 09:06>
== END 2018-11-14 14:07 | disposition home or self-care (01) ==
LOC: NEPC 11:29 → NEDA 14:40 → N06 15:45
PROVIDERS: ADMIT Hospitalist; ATTEND Hospitalist
DX: E86.0 Dehydration; E87.1 Hypo-osmolality and hyponatremia; F32.9 Major depressive disorder, single episode, unspecified; I10 Essential (primary) hypertension; K52.832 Lymphocytic colitis; Z88.8 Allergy status to other drugs, medicaments and biological substances; Z88.6 Allergy status to analgesic agent; Z90.49 Acquired absence of other specified parts of digestive tract; N18.3 Chronic kidney disease, stage 3 (moderate); E87.6 Hypokalemia; E83.51 Hypocalcemia; Z88.2 Allergy status to sulfonamides; R53.1 Weakness; I12.9 Hypertensive chronic kidney disease with stage 1 through stage 4 chronic kidney disease, or unspecified chronic kidney disease; R19.7 Diarrhea, unspecified; Z90.710 Acquired absence of both cervix and uterus; K21.9 Gastro-esophageal reflux disease without esophagitis; Z88.0 Allergy status to penicillin; M06.9 Rheumatoid arthritis, unspecified; N17.9 Acute kidney failure, unspecified; K52.839 Microscopic colitis, unspecified